=== PATIENT | female | born 1975 | race Caucasian/White ===

== ENCOUNTER → 2021-06-09 00:01 | Outpatient (BNVA) | payer SELFPAY | PROVIDERS: Visit Provider Nurse Practitioner Family | DX: L02.91 Cutaneous abscess, unspecified (principal) | CPT/HCPCS: 87070 ==

== ENCOUNTER → 2021-06-28 13:55 | Outpatient (BNVA) | payer MEDICARE, SELFPAY | PROVIDERS: PCP Nurse Practitioner Family; Visit Provider Surgery | DX: Z09 Encounter for follow-up examination after completed treatment for conditions other than malignant neoplasm (principal); R19.5 Other fecal abnormalities; K59.00 Constipation, unspecified; R10.9 Unspecified abdominal pain; F17.210 Nicotine dependence, cigarettes, uncomplicated | CPT/HCPCS: 99203; 99204 ==

== ENCOUNTER → 2021-07-01 09:56 | Outpatient (BNVA) | payer MEDICARE, SELFPAY | PROVIDERS: PCP Nurse Practitioner Family; Visit Provider Internal Medicine | DX: E27.8 Other specified disorders of adrenal gland (principal); F17.210 Nicotine dependence, cigarettes, uncomplicated | CPT/HCPCS: 99204 ==

== ENCOUNTER → 2021-07-08 10:42 | Outpatient (BNVA) | payer MEDICARE, SELFPAY | PROVIDERS: PCP Nurse Practitioner Family; Visit Provider Internal Medicine | DX: E27.8 Other specified disorders of adrenal gland (principal) | CPT/HCPCS: 80048; 82088; 82384; 82530; 82533; 82570; 84244 ==

== ENCOUNTER 2021-07-11 09:36 | Inpatient (IN) | payer MEDICARE, SELFPAY ==
[2021-07-11] VITALS (7 sets, daily range): BP systolic 169–197; BP diastolic 90–101; PULSE 80–99; RESP 15–17; TEMP 36.6; O2SAT 94–100; BMI 25.7; BMI 28.1
--- NOTE | 2021-07-11 09:49 | ECG_ITS ---
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 Measurements Intervals [place] Rate: 83 P: 68 WA: 162 QRS: 64 QRSD: 97 T: 130 QT: 403 QTc: 475 Interpretive Statements SINUS RHYTHM MODERATE T-WAVE ABNORMALITY, CONSIDER LATERAL ISCHEMIA [-0.1+ mV T-WAVE IN I/aVL/V5/V6] No previous ECG available for comparison Electronically Signed On 07-11-2021 21:41:40 CDT by Jaswant Albarran M.D. [id number]
--- NOTE | 2021-07-11 12:45 | CT_ITS ---
WS: [id number] CT HEAD NONCONTRAST HISTORY: gait instability TECHNIQUE: Contiguous axial imaging performed through the brain in 2.5 mm imaging. Bone and soft tiss ue windows. Sagittal and coronal reformats reviewed. All CT scans at [facility] use at least one of these dose optimization techniques: automated exposure control; mA and/or kV adjustment per pa tient size (includes targeted exams where dose is matched to clinical indication); or iterative recon struction. DLP: 838.13 mGy.cm COMPARISON: None available. No acute intracranial hemorrhage, midline shift or mass effect. Mild atrophy bilateral is symmetric. No mass or mass effect. Low attenuation measures 10 mm in the R IGHT cerebellar peduncle. There is a small lacunar infarct in the RIGHT basal ganglia. Ventricles: Normal size with no hydrocephalus. No inferior displacement of cerebellar tonsils. Paranasal sinuses: As visualized are clear. Mastoid air cells: Well pneumatized. Calvarium and scalp: Skull is intact with no soft tissue edema or swelling. CT/CT head wo con* [id number] IMPRESSION: 1. No acute intracranial hemorrhage or edema. 2. Cerebral atrophy and small vessel ischemic disease. 3. 10 mm low-attenuation lesion in the RIGHT middle cerebellar peduncle. This is probably a prior lacunar infarct. Recommend follow-up MRI brain with contras t on a nonurgent basis to exclude underlying neoplasm. 4. Small lacunar infarct RIGHT basal ganglia.
--- NOTE | 2021-07-11 12:56 | ED_ITS ---
HPI - General Adult General: Chief complaint: Dizziness Stated complaint: Dizzy, vomiting, headache Time Seen by Provider: 07/11/21 12:29 History of Present Illness: Patient is a 45-year-old female with a history of diabetes hypertension presents emergency room for evaluation of cute onset of gait instability since 2 days ago. Patient tells me she woke up 2 days ago with difficulty walking and lightheadedness. Patient says that she feels unsteady and is unable to balance herself. Patient reports generalized weakness in the arms and legs. Patient denies any associate chest pain, shortness of breath, melena/hematochezia, diarrhea, complaints. Patient denies any focal weakness in the arms or legs, facial droop, language comprehension or speaking difficulty, diplopia, vision field deficit, or vertigo. Patient had 1 episode of emesis with associated headache earlier this morning. Onset:2 days ago Duration:2 days Location:home Severity:severe Associated symptoms: Reports headache(s) and nausea; Deny chest pain, dyspnea, rash, palpitations or vomiting Review of Systems Const: Denies: fever(s) or chills Eyes: Denies: change in vision ENMT: Denies: mouth pain Card: Denies: chest pain or palpitations Resp: Denies: dyspnea or non-productive cough GI: Reports: nausea; Denies: abdominal pain, vomiting or diarrhea : Denies: dysuria Musc: Denies: extremity pain Skin/Breast: Denies: rash or new lesions Neuro: Reports: headache(s) and other (+gait instability, generalized weakness) Psych: Reports: other (Normal mood) Buster/Lymph: Denies: easy bruising [facility] ED PFSH: Medical History Adrenal mass, left Diabetes Surgical History History of back surgery History of History of cholecystectomy Hx of removal of cyst Family History Other Hypertension Social History Smoking and tobacco status: current every day smoker Physical Exam Const: COMMON NORMALS: alert HENMT: COMMON NORMALS: atraumatic HEAD & SCALP: atraumatic MOUTH: moist mucous membranes not abnormal Eye: COMMON NORMALS: EOMs intact bilaterally and conjunctivae normal CONJUNCTIVA: Yes conjunctivae normal Neck/C-Spine: COMMON NORMALS: full ROM and supple Resp: COMMON NORMALS: normal respiratory effort and clear to auscultation bilaterally AUSCULTATION: clear to auscultation bilaterally Cardio: COMMON NORMALS: regular rate RATE: regular rate GI: COMMON NORMALS: Soft to palpation and non-tender PALPATION: Yes Soft to palpation Extremity: COMMON NORMALS: full ROM Neuro: SENSORIUM/ORIENTATION: Yes alert OTHER: Mental status? Awake, alert, and oriented to self, year, month, location, and situation.? Following simple axial and appendicular commands.? Has appropriate fund of knowledge, comprehension, and insight.? Able to recall and understands pertinent aspects of medical history and current treatment status.? ? Language? Speech is fluent without word-finding difficulties.? Intact naming, expression, switchboard operator receptionist, and repetition.? ? Cranial nerves? 2,3,4,6: PERRL, EOMI with no nystagmus. 5: Intact sensation to light touch, symmetric? 7: Smile symmetrical, no facial droop.? 8: Hearing grossly intact.? 9,10: Normal palate movement.? 11: Normal strength in trapezius bilaterally 12: Tongue protrudes midline.? ? Motor examination? Normal bulk & tone. Strength as follows (R/L): Delts (5/5), Biceps (5/5), Triceps (5/5), Wrist ext (5/5), hip flexors (5/5), plantarflexors (5/5), dorsiflexors (5/5). Sensation? Light Touch: Grossly intact and equal in upper and lower extremities bilaterally? Romberg: Negative.? Distal joint position sense intact ? Coordination? +Qxesdv-rp-ouly-finger L side dysmetria +Rapid fingertaps: not preserved on the L side No tremor, myoclonus or truncal ataxia.? ? Gait/stance? +unsteady gait +positive romberg Psych: COMMON NORMALS: speech normal SPEECH: Yes normal speech MOOD & AFFECT: Yes euthymic mood Course Vital Signs: Vital signs: Vital Signs Temperature 97.9 F 07/11/21 12:20 Pulse Rate 80 07/11/21 14:42 Respiratory Rate 16 07/11/21 14:42 Blood Pressure 197/90 07/11/21 14:42 Pulse Oximetry 99 07/11/21 14:42 [facility] - General Adult Medical Decision Making 45-year-old female with a history of diabetes, hypertension presenting to the emergency room for concerns of gait instability x2 days. On physical exam, patient has positive Romberg, left-sided dysmetria, unsteady gait, and faulty rapid finger tap test on the L side. CT head showed 10 mm lesion in the right peduncle. MRI showed acute L cerebellar stroke. Not a candidate for TPA. Case was discussed with Dr. Morel who admit patient for further evaluation. Disposition: admission Lab Data : 07/11/21 14:06 07/11/21 17:[address] 07/11/21 12:45 IMPRESSION: 1. No acute intracranial hemorrhage or edema. 2. Cerebral atrophy and small vessel ischemic disease. 3. 10 mm low-attenuation lesion in the RIGHT middle cerebellar peduncle. This is probably a prior lacunar infarct. Recommend follow-up MRI brain with contrast on a nonurgent basis to exclude underlying neoplasm. 4. Small lacunar infarct RIGHT basal ganglia. Head MRI 07/11/21 14:19 IMPRESSION: Acute infarct in the left middle cerebellar peduncle. There appears to be an old infarct in the right cerebellar peduncle corresponding to findings on prior CT. Head MRA 07/11/21 15:41 IMPRESSION: Areas of moderate stenosis seen at the intracranial segments of the internal carotid arteries, left greater than right. No occlusion. Neck MRA 07/11/21 15:50 IMPRESSION: No stenosis or occlusion. REFERENCES: NASCET CRITERIA. The degree of internal carotid artery stenosis is based on NASCET criteria. Normal is no stenosis. Mild is less than 50% stenosis. Moderate is 50-69% stenosis. Severe is 70% to 99% stenosis. Total occlusion is no detectable patent lumen. Laboratory Results WBC 8.0 10^3/uL (4.0-10.0) 07/11/21 14:06 RBC 5.50 10^6/uL (4.1-5.3) H 07/11/21 14:06 Hgb 17.1 g/dL (11.5-15.3) H 07/11/21 14:06 Hct 49.9 % (37.0-47.0) H 07/11/21 14:06 MCV 90.7 fl (81-99) 07/11/21 14:06 MCH 31.1 pg (28.0-34.0) 07/11/21 14:06 MCHC 34.3 g/dL (30.0-36.0) 07/11/21 14:06 RDW 12.4 % (12.1-15.1) 07/11/21 14:06 Plt Count 367 10^3/cmm (130-400) 07/11/21 14:06 MPV 9.5 fL (7.4-10.4) 07/11/21 14:06 Neut % (Auto) 69.1 % 07/11/21 14:06 Lymph % (Auto) 25.9 % 07/11/21 14:06 Davison % (Auto) 4.4 % 07/11/21 14:06 Eos % (Auto) 0.2 % 07/11/21 14:06 Baso % (Auto) 0.2 % 07/11/21 14:06 Neut # (Auto) 5.54 10^3/uL (1.8-7.7) 07/11/21 14:06 Lymph # (Auto) 2.1 10^3/uL (0.8-4.8) 07/11/21 14:06 Davison # (Auto) 0.4 10^3/uL (0.2-0.9) 07/11/21 14:06 Eos # (Auto) 0.0 10^3/uL (0.0-0.8) 07/11/21 14:06 Baso # (Auto) 0.0 10^3/uL (0.0-0.1) 07/11/21 14:06 Nucleated RBC % (auto) 0 % 07/11/21 14:06 Nucleated RBCs # 0.0 /100WBC 07/11/21 14:06 Sodium 138 mmol/L (136-145) 07/11/21 17:45 Potassium 3.7 mmol/L (3.5-5.1) 07/11/21 17:45 Chloride 103 mmol/L (98-107) 07/11/21 17:45 Carbon Dioxide 23 mmol/L (22-29) 07/11/21 17:45 Anion Gap 15.7 (5-19) 07/11/21 17:45 BUN 8 mg/dL (6-20) 07/11/21 17:45 Creatinine 0.3 mg/dL (0.5-0.9) L 07/11/21 17:45 GFR Calculation 238.5 mL/min (90-130) H 07/11/21 17:45 Glucose 184 mg/dL (65-115) H 07/11/21 17:45 Calculated Osmolality 289 mOsm/kg (285-295) 07/11/21 17:45 Calcium 10.1 mg/dL (8.5-10.5) 07/11/21 17:45 Total Bilirubin 0.2 mg/dL (0.15-1.2) 07/11/21 17:45 AST 12 U/L (0-32) 07/11/21 17:45 ALT 17 U/L (0-33) 07/11/21 17:45 Alkaline Phosphatase 82 IU/L (35-105) 07/11/21 17:45 Total Protein 6.5 g/dL (6.6-8.7) L 07/11/21 17:45 Albumin 3.6 g/dL (3.5-5.2) 07/11/21 17:45 Globulin 2.9 g/dL (1.3-4.6) 07/11/21 17:45 HCG, Qual Negative (Negative) 07/11/21 14:06 Imaging Data Other Imaging: Radiologist's impression: [address] [address] [address] Scan Report Signed Patient: Melissa Solomon Unit #: [id number] : 1975 Age/Sex: 45 / F ADM Date: 07/11/21 Loc: ER Room/Bed: Attending Dr: Ordering Provider/Ordering MD: Giulia Adame MD Date of Service: 07/11/21 Procedure(s): CT head wo con* [id number] Accession Number(s): [id number] Report Number: [id number] WS: [id number] CT HEAD NONCONTRAST HISTORY: gait instability TECHNIQUE: Contiguous axial imaging performed through the brain in 2.5 mm imaging. Bone and soft tissue windows. Sagittal and coronal reformats reviewed.? [facility] CT scans at [facility] use at least one of these dose optimization techniques: automated exposure control; mA and/or kV adjustment per patient size (includes targeted exams where dose is matched to clinical indication); or iterative reconstruction. DLP: 838.13 mGy.cm COMPARISON: None available. No acute intracranial hemorrhage, midline shift or mass effect. Mild atrophy bilateral is symmetric. No mass or mass effect.? Low attenuation measures 10 mm in the RIGHT cerebellar peduncle. There is a small lacunar infarct in the RIGHT basal ganglia. Ventricles:? Normal size with no hydrocephalus. No inferior displacement of cerebellar tonsils. Paranasal sinuses: As visualized are clear. Mastoid air cells: Well pneumatized. Calvarium and scalp: Skull is intact with no soft tissue edema or swelling. CT/CT head wo con* [id number] IMPRESSION: ? 1.? No acute intracranial hemorrhage or edema. 2.? Cerebral atrophy and small vessel ischemic disease. 3.? 10 mm low-attenuation lesion in the RIGHT middle cerebellar peduncle. This is probably a prior lacunar infarct. Recommend follow-up MRI brain with contrast on a nonurgent basis to exclude underlying neoplasm. 4.? Small lacunar infarct RIGHT basal ganglia. ? Dictated By: Michelle Gohtra DO Signed By: Michelle Ghotra DO Signed Date/Time: 07/11/21 1322 DD/ [address] [address] Magnetic Resonance Report Signed Patient: Melissa Solomon Unit #: [id number] : 1975 Age/Sex: 45 / F ADM Date: 07/11/21 Loc: ER Room/Bed: Attending Dr: Ordering Provider/Ordering MD: Giulia Adame MD Date of Service: 07/11/21 Procedure(s): MR angio neck wo con [id number] Accession Number(s): [id number] Report Number: [id number] PROCEDURE INFORMATION: Exam: MRA Neck With Contrast Exam date and time: 07/11/2021 4:45 PM Age: 45 years old Clinical indication: Abnormal findings; Abnormal mri of head; Additional info: Neck pain, cerebellar stroke TECHNIQUE: Imaging protocol: Magnetic resonance angiography of the neck with contrast. Angiographic sequences such as Mvqb-lv-yqnuqo (TOF) or Time-resolved contrast techniques were performed. Contrast material: 0; Contrast route: NON-VASCULAR INTERVENTIONAL INJECTION (NON-VASCULA;? COMPARISON: MR angio head wo con [id number] 07/11/2021 4:31 PM FINDINGS: Right common carotid artery: No stenosis. No dissection or occlusion. Right internal carotid artery: No stenosis of the extracranial segment. No dissection or occlusion. Right external carotid artery: No stenosis. No dissection or occlusion of the origin. Right vertebral artery: No stenosis. No dissection or occlusion. Left common carotid artery: No stenosis. No dissection or occlusion. Left internal carotid artery: No stenosis of the extracranial segment. No dissection or occlusion. Left external carotid artery: No stenosis. No dissection or occlusion of the origin. Left vertebral artery: No stenosis. No dissection or occlusion. MR/MR angio neck wo con [id number] IMPRESSION: No stenosis or occlusion. ? REFERENCES: NASCET CRITERIA. The degree of internal carotid artery stenosis is based on NASCET criteria. Normal is no stenosis. Mild is less than 50% stenosis. Moderate is 50-69% stenosis. Severe is 70% to 99% stenosis. Total occlusion is no detectable patent lumen. ? Dictated By: Scott Bah DO Signed By: Scott Bah DO Signed Date/Time: 07/11/211826 DD/ [address] [address] Magnetic Resonance Report Signed Patient: Melsisa Solomon Unit #: [id number] : 1975 Age/Sex: 45 / F ADM Date: 07/11/21 Loc: ER Room/Bed: Attending Dr: Ordering Provider/Ordering MD: Giulia Adame MD Date of Service: 07/11/21 Procedure(s): MR angio head wo con [id number] Accession Number(s): [id number] Report Number: [id number] PROCEDURE INFORMATION: Exam: MRA Head Without Contrast; Arteriography Exam date and time: 07/11/2021 4:31 PM Age: 45 years old Clinical indication: Dizziness and giddiness; Additional info: Eval for vascular injuries TECHNIQUE: Imaging protocol: Magnetic resonance angiography head without contrast. Ubgz-sv-ylnxbx (TOF) technique was utilized for this exam. Exam focused on the arteries. COMPARISON: MR head wo con* [id number] 07/11/2021 3:22 PM FINDINGS: ANTERIOR CIRCULATION: Right internal carotid artery: Areas of moderate stenosis seen at the intracranial segment of the internal carotid artery without occlusion. No aneurysm. Right middle cerebral artery: No occlusion or significant stenosis. No aneurysm. Right anterior cerebral artery: No occlusion or significant stenosis. No aneurysm. Left internal carotid artery: Areas of moderate stenosis seen at the intracranial segment of the internal carotid artery without occlusion. No aneurysm. Left middle cerebral artery: No occlusion or significant stenosis. No aneurysm. Left anterior cerebral artery: No occlusion or significant stenosis. No aneurysm. POSTERIOR CIRCULATION: Right vertebral artery: No occlusion or significant stenosis. No aneurysm. Left vertebral artery: No occlusion or significant stenosis. No aneurysm. Basilar artery: No occlusion or significant stenosis. No aneurysm. Right posterior cerebral artery: No occlusion or significant stenosis. No aneurysm. Left posterior cerebral artery: No occlusion or significant stenosis. No aneurysm. MR/MR angio head wo con [id number] IMPRESSION: Areas of moderate stenosis seen at the intracranial segments of the internal carotid arteries, left greater than right. No occlusion. ? Dictated By: Scott aBh DO Signed By: Scott Bah DO Signed Date/Time: 07/11/21 1833 DD/ [address] [place] [address] Magnetic Resonance Report Signed Patient: Melissa Solomon Unit #: [id number] : 1975 Age/Sex: 45 / F ADM Date: 07/11/21 Loc: ER Room/Bed: Attending Dr: Ordering Provider/Ordering MD: Giulia Adame MD Date of Service: 07/11/21 Procedure(s): MR head wo con* [id number] Accession Number(s): [id number] Report Number: [id number] PROCEDURE INFORMATION: Exam: MR Head Without Contrast Exam date and time: 07/11/2021 3:22 PM Age: 45 years old Clinical indication: Abnormal findings; Abnormal radiologic findings of head/skull; Not specified; Additional info: R cerebellar met vs stroke TECHNIQUE: Imaging protocol: MR of the head without contrast. COMPARISON: CT head wo con* [id number] 07/11/2021 1:00 PM FINDINGS: Brain: Acute infarct in the left middle cerebellar peduncle with diffusion restriction in this region as best seen on series 302, image 7 and series 303, image 7. There is a presumed old infarct in the right cerebellar peduncle corresponding to finding on CT. Please note, cannot evaluate for enhancement given lack of contrast. Cerebral ventricles: Normal. No ventriculomegaly. Bones/joints: Unremarkable. Paranasal sinuses: Trace fluid in the left maxillary sinus. The rest of the paranasal sinuses are well pneumatized. Mastoid air cells: Normal as visualized. No mastoid effusion. Orbital cavities: Unremarkable. Soft tissues: Unremarkable. MR/MR head wo con* [id number] IMPRESSION: Acute infarct in the left middle cerebellar peduncle. There appears to be an old infarct in the right cerebellar peduncle corresponding to findings on prior CT. ? Dictated By: Scott Bah DO Signed By: Scott Bah DO Signed Date/Time: 07/11/21 1840 DD/ 1522 Discharge Plan Discharge Patient Disposition: Admitted As Inpatient Clinical Impression: Dysmetria, Gait instability Condition: Stable Coding Level of Care Code ED Recreational Director for Chg Fwd Exam Comprehensive
[2021-07-11] MEDS: sodium chloride 0.9% 1,000 ML 999 ML IV ×2 (14:01→14:34)
[2021-07-11] MEDS: ondansetron 2 mg/ML SDV 2 mL 4 MG IVP (14:03)
[2021-07-11] MEDS: acetaminophen 500 mg Tablet PO ×2 (14:03→14:34)
--- NOTE | 2021-07-11 14:19 | MRR_ITS ---
PROCEDURE INFORMATION: Exam: MR Head Without Contrast Exam date and time: 07/11/2021 3:22 PM Age: 45 years old Clinical indication: Abnormal findings; Abnormal radiologic findings of head/skull; Not specified; Additional info: R cerebellar met vs stroke TECHNIQUE: Imaging protocol: MR of the head without contrast. COMPARISON: CT head wo con* [id number] 07/11/2021 1:00 PM FINDINGS: Brain: Acute infarct in the left middle cerebellar peduncle with diffusion restriction in this region as best seen on series 302, image 7 and series 303, image 7. There is a presumed old infarct in the right cerebellar peduncle corresponding to finding on CT. Please note, cannot evaluate for enhancement given lack of contrast. Cerebral ventricles: Normal. No ventriculomegaly. Bones/joints: Unremarkable. Paranasal sinuses: Trace fluid in the left maxillary sinus. The rest of the paranasal sinuses are well pneumatized. Mastoid air cells: Normal as visualized. No mastoid effusion. Orbital cavities: Unremarkable. Soft tissues: Unremarkable. MR/MR head wo con* [id number] IMPRESSION: Acute infarct in the left middle cerebellar peduncle. There appears to be an old infarct in the right cerebellar peduncle corresponding to findings on prior CT.
[2021-07-11] MEDS: diphenhydrAMINE 50 mg/mL SDV 1mL IVP (14:34)
[2021-07-11] MEDS: metoclopramide 5 mg/mL SDV 2 mL 10 MG IVP (14:34)
[2021-07-11 14:44] LABS: Basophils % 0.2 %; Eosinophils % 0.2 %; Hematocrit 49.9 % (37.0-47.0); Hemoglobin 17.1 g/dL (11.5-15.3); Lymphocytes # 2.1 10^3/uL (0.8-4.8); Lymphocytes % 25.9 %; Mean Corpuscular HGB Conc 34.3 g/dL (30.0-36.0); Mean Corpuscular Hemoglobin 31.1 pg (28.0-34.0); Mean Corpuscular Volume 90.7 fl (81-99); Mean Platelet Volume 9.5 fL (7.4-10.4); Monocytes # 0.4 10^3/uL (0.2-0.9); Monocytes % 4.4 %; Neutrophils # 5.54 10^3/uL (1.8-7.7); Neutrophils % 69.1 %; Nucleated Red Blood Cells % 0 %; Platelet Count 367 10^3/cmm (130-400); Red Cell Distribution Width 12.4 % (12.1-15.1)
[2021-07-11 15:01] LABS: HCG, Serum Qual Negative (Negative)
--- NOTE | 2021-07-11 15:41 | MRR_ITS ---
PROCEDURE INFORMATION: Exam: MRA Head Without Contrast; Arteriography Exam date and time: 07/11/2021 4:31 PM Age: 45 years old Clinical indication: Dizziness and giddiness; Additional info: Eval for vascular injuries TECHNIQUE: Imaging protocol: Magnetic resonance angiography head without contrast. Fgrz-ex-eioqed (TOF) technique was utilized for this exam. Exam focused on the arteries. COMPARISON: MR head wo con* [id number] 07/11/2021 3:22 PM FINDINGS: ANTERIOR CIRCULATION: Right internal carotid artery: Areas of moderate stenosis seen at the intracranial segment of the internal carotid artery without occlusion. No aneurysm. Right middle cerebral artery: No occlusion or significant stenosis. No aneurysm. Right anterior cerebral artery: No occlusion or significant stenosis. No aneurysm. Left internal carotid artery: Areas of moderate stenosis seen at the intracranial segment of the internal carotid artery without occlusion. No aneurysm. Left middle cerebral artery: No occlusion or significant stenosis. No aneurysm. Left anterior cerebral artery: No occlusion or significant stenosis. No aneurysm. POSTERIOR CIRCULATION: Right vertebral artery: No occlusion or significant stenosis. No aneurysm. Left vertebral artery: No occlusion or significant stenosis. No aneurysm. Basilar artery: No occlusion or significant stenosis. No aneurysm. Right posterior cerebral artery: No occlusion or significant stenosis. No aneurysm. Left posterior cerebral artery: No occlusion or significant stenosis. No aneurysm. MR/MR angio head wo con [id number] IMPRESSION: Areas of moderate stenosis seen at the intracranial segments of the internal carotid arteries, left greater than right. No occlusion.
--- NOTE | 2021-07-11 15:50 | MRR_ITS ---
PROCEDURE INFORMATION: Exam: MRA Neck With Contrast Exam date and time: 07/11/2021 4:45 PM Age: 45 years old Clinical indication: Abnormal findings; Abnormal mri of head; Additional info: Neck pain, cerebellar stroke TECHNIQUE: Imaging protocol: Magnetic resonance angiography of the neck with contrast. Angiographic sequences such as Iraz-tt-pyujze (TOF) or Time-resolved contrast techniques were performed. Contrast material: 0; Contrast route: NON-VASCULAR INTERVENTIONAL INJECTION (NON-VASCULA; COMPARISON: MR angio head wo con [id number] 07/11/2021 4:31 PM FINDINGS: Right common carotid artery: No stenosis. No dissection or occlusion. Right internal carotid artery: No stenosis of the extracranial segment. No dissection or occlusion. Right external carotid artery: No stenosis. No dissection or occlusion of the origin. Right vertebral artery: No stenosis. No dissection or occlusion. Left common carotid artery: No stenosis. No dissection or occlusion. Left internal carotid artery: No stenosis of the extracranial segment. No dissection or occlusion. Left external carotid artery: No stenosis. No dissection or occlusion of the origin. Left vertebral artery: No stenosis. No dissection or occlusion. MR/MR angio neck wo con [id number] IMPRESSION: No stenosis or occlusion. REFERENCES: NASCET CRITERIA. The degree of internal carotid artery stenosis is based on NASCET criteria. Normal is no stenosis. Mild is less than 50% stenosis. Moderate is 50-69% stenosis. Severe is 70% to 99% stenosis. Total occlusion is no detectable patent lumen.
[2021-07-11 18:15] LABS: Alanine Aminotransferase 17 U/L (0-33); Albumin Level 3.6 g/dL (3.5-5.2); Alkaline Phosphatase 82 IU/L (35-105); Anion Gap 15.7 (5-19); Aspartate Amino Transferase 12 U/L (0-32); Blood Urea Nitrogen 8 mg/dL (6-20); Calcium 10.1 mg/dL (8.5-10.5); Carbon Dioxide 23 mmol/L (22-29); Chloride 103 mmol/L (98-107); Globulin 2.9 g/dL (1.3-4.6); Glomerular Filtration Rate 238.5 mL/min (90-130); Glucose 184 mg/dL (65-115); Osmolality Calculated 289 mOsm/kg (285-295); Potassium 3.7 mmol/L (3.5-5.1); Sodium 138 mmol/L (136-145); Total Bilirubin 0.2 mg/dL (0.15-1.2); Total Protein 6.5 g/dL (6.6-8.7)
--- NOTE | 2021-07-11 19:18 | PM.HP ---
Providers/Chief Complaint Primary Care Provider: ALMA DELIA Cunningham Chief Complaint: Dizzy, vomiting, headache History of Present Illness Pleasant 45-year-old lady with history of DM2, HTN, current smoker has been having difficulties with gait, as well as having episodes of vertigo since Sunday. Also reports some headache. In ER with noted very elevated blood pressure as high as 197/90. CT of the head with no acute intracranial hemorrhage or edema, cerebral atrophy and small vessel ischemic disease. 10 mm low-attenuation lesion in the right middle cerebellar peduncle suspected prior infarct, could not rule out neoplasm. Small chronic infarct right basal ganglia. Was additionally assessed by MRI and MRI, with noted acute infarct in left middle cerebral peduncle. As well as old infarct in right cerebellar peduncle corresponding to findings on CT. MRA head with there is moderate stenosis seen at intracranial segments of the internal carotid arteries. Left greater than right. No occlusion. No stenosis or occlusion in the neck. She has seen endocrinology and studies are pending for work-up of adrenal incidentaloma. She was also supposed to be following up regarding upper and lower endoscopy due to chronic right-sided and epigastric discomfort. Review of Systems Const: Denies: fever(s), chills, body aches or malaise Eyes: Denies: change in vision, eye discomfort or eye redness ENMT: Denies: throat pain, oral sores or ear or mastoid pain Card: Denies: chest pain, edema, pre-syncope or dyspnea on exertion Resp: Denies: dyspnea, productive cough, change in phlegm color or hemoptysis GI: Reports: nausea, vomiting and constipation; Denies: abdominal pain, diarrhea, hematochezia or melena : Denies: flank pain, urinary frequency or hematuria Musc: Denies: back pain, joint swelling or joint redness Skin/Breast: Denies: rash or new lesions Neuro: Reports: headache(s), difficulty walking and vertigo; Denies: numbness in extremities, weakness in extremities, confusion or seizure-like activity Endo: Denies: polyuria or polydipsia Buster/Lymph: Denies: easy bleeding or tender lymph nodes All/Imm: Denies: urticaria or tongue swelling Medications/Allergies Home Medications Medication Instructions Recorded Confirmed Last Taken Type diclofenac sodium 50 mg 50 mg PO Q8H PRN #60 tab 06/24/21 07/11/21 07/10/21 Rx tablet,delayed release labetalol 100 mg tablet 100 mg PO BID 06/24/21 07/11/21 07/11/21 History lisinopril 10 mg tablet 10 mg PO DAILY 06/24/21 07/11/21 07/10/21 History metformin 1,000 mg tablet 1,000 mg PO BID 06/24/21 07/11/21 07/10/21 History ondansetron HCl 4 mg tablet 4 mg PO Q8H 06/24/21 07/11/21 Unknown History venlafaxine 37.5 mg 37.5 mg PO DAILY #30 cap 06/24/21 07/11/21 07/10/21 Rx capsule,extended release 24 hr (Effexor XR) lactulose 10 gram/15 mL oral 15 ml PO BID 14 Days #420 ml 06/28/21 07/11/21 Unknown Rx solution Allergies Allergy/AdvReac Type Severity Reaction Status Date / Time No Known Allergies Allergy Verified 07/01/21 10:13 PFSH Acute PFSH: Medical History (Updated 07/11/21 @ 19:58 by Ion Forbes MD) Adrenal mass, left Diabetes HTN (hypertension) Surgical History History of back surgery History of History of cholecystectomy Hx of removal of cyst Family History Sister Stroke Other Hypertension Social History Smoking and tobacco status: current every day smoker Alcohol intake: never Substance/Drug Use: never Lives independently: Yes Household members: spouse Marital status: Current occupational status: unemployed Vitals/I&O/Wt Last Vital Signs Temp 97.9 F 07/11/21 12:20 Pulse 80 07/11/21 14:42 Resp 16 07/11/21 14:42 BP 197/90 07/11/21 14:42 Pulse Ox 99 07/11/21 14:42 07/11/21 07/11/21 07/11/21 06:59 14:59 22:59 Intake Total 1000 / 1000 Balance 1000 / 1000 Weight last 48 hrs Weight 70.307 kg Physical Exam Narrative: at bedside Const: COMMON NORMALS: alert GENERAL APPEARANCE: cooperative ORIENTATION/CONSCIOUSNESS: Yes awake HENMT: COMMON NORMALS: normocephalic, EAC's normal, Normal external nose present and moist oral mucous membranes HEAD & SCALP: normocephalic NOSE: Normal external nose present EXTERNAL AUDITORY CANAL: EAC's normal Neck/C-Spine: COMMON NORMALS: no meningeal signs Chest: CHEST: Yes Symmetrical chest wall rise Resp: COMMON NORMALS: clear to auscultation bilaterally AUSCULTATION: clear to auscultation bilaterally Cardio: COMMON NORMALS: regular rate, regular rhythm and No murmurs present (Cardio) RATE: regular rate RHYTHM: regular rhythm GI: COMMON NORMALS: Normal to inspection, nondistended, normoactive bowel sounds present, Soft to palpation and non-tender PALPATION: Yes Soft to palpation Extremity: COMMON NORMALS: no pedal edema Neuro: COMMON NORMALS: moves all extremities SENSORIUM/ORIENTATION: Yes alert MENINGEAL SIGNS: Yes no meningeal signs COORDINATION/BALANCE: No [id number] test normal (Mild dysmetria on L, corrects), No Normal rapid alternating movements of the distal upper extremity present (Neuro) (slower on L) and other SPEECH: speech normal SENSORY EXAM: Yes extremities (Symmetrical) and Normal double simultaneous stimulation for sensation; No sensory level loss detected MOTOR EXAM: 5/5 motor strength present throughout OTHER: Awake and alert. Readily follows directions. No trouble tracking. No diplopia or vertigo triggered with horizontal or vertical tracking. Visual may full to confrontation. No facial droop. Psych: COMMON NORMALS: mental status grossly normal Skin: COMMON NORMALS: no wounds RASHES: no rashes Data : 07/11/21 14:06 07/11/21 17:45 A&P Assessment and plan (1) CVA (cerebral vascular accident): Acute infarct in left middle cerebellar peduncle, old infarct in right cerebellar peduncle. Discussed with her and her . Outside the window for tPA or intervention. Noted MRI results with areas of moderate stenosis at the intracranial segments of internal carotid arteries, left greater than right. Discussed with her risk factors of CVA, including smoking, HTN, diabetes. Does have family history of CVA as well. Discussed aspirin, statin. Permissive hypertension. Monitor blood pressures Posterior circulation CVA. Avoid blood rapid pressure decrease. Continue gentle IV hydration. Monitor on telemetry. Assess TTE. Check A1c, lipid profile. PT, OT, ST Stop NSAIDs Status: Acute (2) Smoking addiction: Discussed smoking cessation for 4 minutes. Given supplementation change encourage cessation. Status: Acute (3) Carotid artery stenosis: Moderate, left greater than right Status: Acute (4) HTN (hypertension): Will need optimization of control of hypertension. Also with noted adrenal incidentaloma, currently undergoing work-up for hypersecretion. Reports sometimes episodes of lightheadedness, discussed with her will be useful to determine that does not have pheochromocytoma. Stop NSAIDs Status: Acute (5) Diabetes: Check A1c. Continue metformin. Consistent carbohydrate diet. Status: Acute Plan Chronic right abdominal, epigastric pain. Pending arrangements for EGD, colonoscopy. Chronic constipation: Continue lactulose Attestations Medical Necessity Statement*: Admission of over 2 midnights is anticipated for assessment of management of acute and subacute cerebellar CVA. Coding Level of Care Code Acute Video Games Mechanic for Susan Pat Diagnoses CVA (cerebral vascular accident) I63.9 Smoking addiction F17.200 Carotid artery stenosis I65.29 HTN (hypertension) I10 Diabetes E11.9
[2021-07-11] MEDS: heparin 5,000 unit/mL INJ 1 mL 5000 UNIT SUBCUT (20:44)
[2021-07-11] MEDS: atorvastatin 40 mg Tablet PO (20:44)
[2021-07-11] MEDS: aspirin 81 mg EC Tablet 162 MG PO (20:44)
[2021-07-11] MEDS: sodium chloride 0.9% 1,000 ML 100 ML IV (20:44)
[2021-07-11] MEDS: nicotine 21 mg Patch 1 PATCH TRANSDERMA (20:45)
[2021-07-11 21:18] LABS: Glucose Point of Care 171 mg/dL (70-110)
[2021-07-12] VITALS (12 sets, daily range): BP systolic 166–194; BP diastolic 78–95; PULSE 80–101; RESP 16–18; TEMP 36.2–37.6; O2SAT 92–99
[2021-07-12] MEDS: heparin 5,000 unit/mL INJ 1 mL 5000 UNIT SUBCUT ×3 (04:10→20:34)
[2021-07-12 05:17] LABS: Chol HDL Ratio 7.85 mg/dL (0.0-4.40); Cholesterol 259 mg/dL (0-200); HDL Cholesterol 33 mg/dL (60-100); LDL Cholesterol Calculated 169 mg/dL (50-129); LDL HDL Ratio 5.12 RATIO (0.00-3.22); Triglycerides 283 mg/dL (0-150)
[2021-07-12 05:44] LABS: Estmated Average Glucose 197; Hemoglobin A1C 8.5 % (4.0-6.0)
--- NOTE | 2021-07-12 06:00 | USCV_ITS ---
Melissa Solomon Age: 45 Gender: F : 1975 Exam Date: 07/12/2021 00:21 Ordering Phys: Ion Forbes MD Technologist: MEHRDAD Exam Location: [facility] – [place] Indication: CVA BP: / HR: 84 Rhythm: Sinus Technical Quality: Adequate MEASUREMENTS (Male / Female) Normal Values 2D ECHO LV Diastolic Diameter PLAX 5.2 cm 4.2 - 5.9 / 3.9 - 5.3 cm LV Systolic Diameter PLAX 3.0 cm IVS Diastolic Thickness 1.1 cm 0.6 - 1.0 / 0.6 - 0.9 cm IVS Systolic Thickness 2.7 cm LVPW Diastolic Thickness 1.1 cm 0.6 - 1.0 / 0.6 - 0.9 cm LVPW Systolic Thickness 2.2 cm LVOT Diameter 2.2 cm LV Ejection Fraction 2D Teich 72.4 % LV Ejection Fraction MOD 2C 55.8 % LV Ejection Fraction 2C AL 58.8 % LA Diameter 3.1 cm LA Width 3.9 cm LA Height 4.6 cm RA Width 3.0 cm RA Height 2.6 cm Aorta at Sinotubular Diameter 2.0 cm IVC Diameter 1.5 cm M-MODE Aortic Annulus Diameter 2.4 cm LA Ao Ratio MM 1.4 MV E Point Septal Separation 0.8 cm DOPPLER AV Peak Velocity 133.0 cm/s LVOT Peak Velocity 100.0 cm/s AV Area Cont Eq vti 2.8 cm squared AV Area Cont Eq pk 2.9 cm squared MV Peak Velocity 118.0 cm/s MV Area PHT 3.9 cm squared Mitral E to A Ratio 0.8 MV E' Velocity 94.0 cm/s TR Peak Velocity 83.7 cm/s TR Peak Gradient 2.8 mmHg TR Mean Velocity 61.9 cm/s TR Mean Gradient 1.6 mmHg TR Velocity Time Integral 17.6 cm Right Atrial Pressure 10.0 mmHg Pulmonary Artery Systolic Pressu 12.8 mmHg PV Peak Velocity 98.0 cm/s RV Acceleration Time 0.1 s RV Ejection Time 0.3 s RV AcT/ET 0.3 FINDINGS Left Ventricle LV systolic function is normal with EF of 55-60%. No regional wall motion abnormalities. Grade 1 diastolic dysfunction Right Ventricle The right ventricle is normal in size and function. Right Atrium The right atrium is normal in size. Left Atrium The left atrium is normal in size. Mitral Valve Structurally normal mitral valve without significant stenosis or prolapse. There is mild mitral regurgitation. Aortic Valve Structurally normal aortic valve without significant sclerosis or stenosis. There is no aortic regurgitation. Tricuspid Valve Structurally normal tricuspid valve without significant stenosis. Trace tricuspid regurgitation. Insufficient TR jet to calculate RVSP Pulmonic Valve Structurally normal pulmonic valve without significant stenosis. There is no pulmonic regurgitation. Pericardium Trivial pericardial effusion Aorta Normal ascending aorta dimension. CONCLUSIONS LV systolic function is normal with EF of 55-60% Grade 1 diastolic dysfunction Mild mitral regurgitation Trace tricuspid regurgitation Trivial pericardial effusion is seen No comparison studies are available Ld Ferrer MD (Electronically Signed) Final Date: 12 Jul 2021 11:26 S
[2021-07-12] MEDS: morphine 4 mg/mL SDV 1 mL 2 MG IVP ×2 (07:43→16:19)
[2021-07-12] MEDS: sodium chloride 0.9% 1,000 ML 100 ML IV (07:44)
[2021-07-12] MEDS: metformin 500 mg Tablet 1000 MG PO ×2 (07:49→17:16)
[2021-07-12] MEDS: aspirin 81 mg EC Tablet 162 MG PO (07:49)
[2021-07-12] MEDS: venlafaxine ER (24HR) 37.5 mg Capsule PO (07:49)
--- NOTE | 2021-07-12 14:17 | PC.CHAP ---
Pastoral Care Encounter/Spiritual Assessment Type of Contact [] Declined senior staff specialized employment visit [] Patient/Family/Request visit [] Outpatient visit [] Follow-up visit [] Physician referral [] Code/Alert [x] Routine visit [] Staff referral [] Actively dying [] Patient sleeping [] Family support [] [] Out of room [] Palliative care [] [] Receiving care in room [] Pre-surgical visit [] Trauma [] Long length of stay [] ICU visit [] Other: Relational/Emotional Strength [x] Patient feels connected with others/family/visitors/staff [] Distress [] Loneliness/isolation [] Abandonment Spirituality of Patient [x] Person of Taylor [x] Attends Anabaptism of their [place] [x] Believes in Prayer [] Reads Bible or Yarsani materials [] There are Spiritual issues to be addressed Java Lead Architect Interventions [x] Prayer [x] Active listening [x] Non-anxious presence x[] Spiritual/emotional support [] Crisis/trauma care [] Spiritual counseling [] Bereavement support [] Provided bereavement packet [] Provided Bible/devotional materials [] Provided toy/stuffed animal, coloring book to patient or family member [] Provided Communion [] Anointing/Mayer [] Salvation [x] Completed spiritual assessment [] Other: Impact on Illness or Injury [] Angry [] Fearful [] Anxious [] Often cries [] Exhaustion [] Unable to work [] Unable to attend presybeterian [] Unable to walk/stand [] Unable to read [] Unable to drive [] Unable to eat/drink [] Unable to sleep [] Unable to be with family [] Patient intubated [] Other: Summary Time spent with patient 10 min
--- NOTE | 2021-07-12 15:15 | PC.OT ---
OT EVALUATION ORDERS RECEIVED. PATIENT DEMONSTRATES NO DEFICITS IN ADL. SLIGHTLY WEAKER LEFT UE BUT NOT SIGNIFICANT. GAVE SUGGESTIONS FOR HEP. PATIENT DOES NOT REQUIRE FURTHER SKILLED TO AT THIS TIME.
--- NOTE | 2021-07-12 16:31 | PM.PN ---
Subjective Subjective: States she feels better today. She got up and ambulated herself to the restroom using IV pole to steady herself. Reports today did not have vertigo. Still has some residual diarrhea kinesis and left upper extremity more so than left lower extremity. Dysmetria has improved. No headache. No chest pain pressure shortness of breath. No nausea or vomiting. Ate breakfast. Vitals/I&O/Wt Last Vital Signs Temp 99.6 F 07/12/21 15:39 Pulse 89 07/12/21 15:39 Resp 18 07/12/21 16:19 BP 190/93 07/12/21 15:39 Pulse Ox 99 07/12/21 15:39 07/12/21 07/12/21 07/12/21 06:59 14:59 22:59 Intake Total 999 1285 / 1285 Balance 999 1285 / 1285 Weight last 48 hrs Weight 76.748 kg Weight 70.307 kg Physical Exam Const: COMMON NORMALS: alert GENERAL APPEARANCE: cooperative ORIENTATION/CONSCIOUSNESS: Yes awake OTHER: In good spirits. HENMT: COMMON NORMALS: normocephalic, EAC's normal, Normal external nose present and moist oral mucous membranes HEAD & SCALP: normocephalic NOSE: Normal external nose present EXTERNAL AUDITORY CANAL: EAC's normal Neck/C-Spine: COMMON NORMALS: no meningeal signs Chest: CHEST: Yes Symmetrical chest wall rise Resp: COMMON NORMALS: clear to auscultation bilaterally AUSCULTATION: clear to auscultation bilaterally Cardio: COMMON NORMALS: regular rate, regular rhythm and No murmurs present (Cardio) RATE: regular rate RHYTHM: regular rhythm GI: COMMON NORMALS: Normal to inspection, nondistended, normoactive bowel sounds present, Soft to palpation and non-tender PALPATION: Yes Soft to palpation Extremity: COMMON NORMALS: no pedal edema Neuro: COMMON NORMALS: moves all extremities SENSORIUM/ORIENTATION: Yes alert MENINGEAL SIGNS: Yes no meningeal signs COORDINATION/BALANCE: No [id number] test normal (Improved L side dysmetria), No Normal rapid alternating movements of the distal upper extremity present (Neuro) (Persistent on L) and other SPEECH: speech normal SENSORY EXAM: Yes extremities (Symmetrical) and Normal double simultaneous stimulation for sensation; No sensory level loss detected MOTOR EXAM: 5/5 motor strength present throughout COORDINATION: [id number] test abnormal (Improved L side dysmetria), abnormal rapid alternating movement UE (Persistent on L) and other OTHER: Awake and alert. Readily follows directions. No trouble tracking. No diplopia or vertigo triggered with horizontal or vertical tracking. Visual may full to confrontation. No facial droop. Psych: COMMON NORMALS: mental status grossly normal Skin: COMMON NORMALS: no wounds RASHES: no rashes Data : 07/11/21 14:06 07/11/21 17:45 A&P Assessment and plan (1) CVA (cerebral vascular accident): Hold further IV fluid. Monitor for change in symptoms. Any rapid change in blood pressure. Discussed with her avoiding rapid decrease in blood pressure given posterior circulation CVA, risk for life-threatening edema. We may resume antihypertensives gradually, starting with half dose labetalol to avoid beta-gay withdrawal, tonight or tomorrow morning depending on blood pressures. Gradually escalate over at least several days back to her usual regimen. Acute infarct in left middle cerebellar peduncle, old infarct in right cerebellar peduncle. Discussed with her and her . Outside the window for tPA or intervention. Noted MRI results with areas of moderate stenosis at the intracranial segments of internal carotid arteries, left greater than right. Discussed with her risk factors of CVA, including smoking, HTN, diabetes. Does have family history of CVA as well. Continue aspirin, statin. Posterior circulation CVA. Avoid blood rapid pressure decrease. Monitor on telemetry. TTE -normal EF, grade 1 diastolic dysfunction, mild MR, trace TR, trivial pericardial effusion A1c 8.5, can benefit from better diabetes control Assessment by therapy Stop NSAIDs Status: Acute (2) Smoking addiction: Patient encourage cessation. Status: Acute (3) Carotid artery stenosis: Moderate, left greater than right Status: Acute (4) HTN (hypertension): Stop IVF, depending on blood pressures, symptoms consider gradual resumption of half dose labetalol, then gradually returning to prior antihypertensive regimen. May need to be further optimized long-term. Will need optimization of control of hypertension. Also with noted adrenal incidentaloma, currently undergoing work-up for hypersecretion. Reports sometimes episodes of lightheadedness, discussed with her will be useful to determine that does not have pheochromocytoma. Stop NSAIDs Status: Acute (5) Diabetes: A1c 8.5. Continue metformin. Consistent carbohydrate diet. May benefit from better control. Status: Acute Plan Chronic right abdominal, epigastric pain. Pending arrangements for EGD, colonoscopy. Chronic constipation: Continue lactulose Attestations Medical Necessity Statement*: Continue admission for assessment management of posterior circulation CVA Coding Level of Care Code Acute Transition Advisor for [facility] Fwd Diagnoses CVA (cerebral vascular accident) I63.9 Smoking addiction F17.200 Carotid artery stenosis I65.29 HTN (hypertension) I10 Diabetes E11.9
[2021-07-12] MEDS: nicotine 21 mg Patch 1 PATCH TRANSDERMA (20:33)
[2021-07-12] MEDS: atorvastatin 40 mg Tablet PO (20:34)
[2021-07-13] VITALS (7 sets, daily range): BP systolic 178–204; BP diastolic 84–103; PULSE 73–88; RESP 16–17; TEMP 36.4–36.9; O2SAT 94–98
[2021-07-13] MEDS: morphine 4 mg/mL SDV 1 mL 2 MG IVP (04:05)
[2021-07-13] MEDS: heparin 5,000 unit/mL INJ 1 mL 5000 UNIT SUBCUT ×2 (04:11→12:39)
[2021-07-13 06:05] LABS: Basophils % 0.5 %; Eosinophils # 0.1 10^3/uL (0.0-0.8); Eosinophils % 1.5 %; Hematocrit 44.8 % (37.0-47.0); Lymphocytes # 3.6 10^3/uL (0.8-4.8); Lymphocytes % 48.6 %; Mean Corpuscular HGB Conc 33.5 g/dL (30.0-36.0); Mean Corpuscular Volume 92.6 fl (81-99); Monocytes # 0.6 10^3/uL (0.2-0.9); Neutrophils # 3.02 10^3/uL (1.8-7.7); Neutrophils % 41.3 %; Nucleated Red Blood Cells % 0 %; Platelet Count 345 10^3/cmm (130-400); Red Blood Count 4.84 10^6/uL (4.1-5.3); Red Cell Distribution Width 12.1 % (12.1-15.1); White Blood Count 7.3 10^3/uL (4.0-10.0)
[2021-07-13 06:51] LABS: Anion Gap 16.3 (5-19); Blood Urea Nitrogen 9 mg/dL (6-20); Calcium 10.2 mg/dL (8.5-10.5); Carbon Dioxide 21 mmol/L (22-29); Chloride 102 mmol/L (98-107); Glomerular Filtration Rate 238.5 mL/min (90-130); Glucose 198 mg/dL (65-115); Osmolality Calculated 286 mOsm/kg (285-295); Potassium 3.3 mmol/L (3.5-5.1); Sodium 136 mmol/L (136-145)
[2021-07-13] MEDS: venlafaxine ER (24HR) 37.5 mg Capsule PO (09:30)
[2021-07-13] MEDS: metformin 500 mg Tablet 1000 MG PO (09:30)
[2021-07-13] MEDS: potassium chloride ER 20 mEq Tablet PO (09:31)
[2021-07-13] MEDS: labetalol 200 mg Tablet 50 MG PO (09:31)
[2021-07-13] MEDS: aspirin 81 mg EC Tablet 162 MG PO (09:31)
--- NOTE | 2021-07-13 16:00 | PM.DCS ---
Discharge Providers Date of Admission: 07/11/21 18:40 Date of Discharge: July 13, 2021 Attending Provider at Admission: Ion Forbes Attending Provider at Discharge: Ion Forbes Primary Care Provider: ALMA DELIA Cunningham Diagnoses at Discharge Discharge Diagnosis (1) CVA (cerebral vascular accident): Status: Acute (2) Smoking addiction: Status: Acute (3) Carotid artery stenosis: Status: Acute (4) HTN (hypertension): Status: Acute (5) Diabetes: Status: Acute Reason for Visit Reason for Visit: Dizzy, vomiting, headache Hospital Course Hospital Course Pleasant 45-year-old lady current smoker with DM2, HTN, adrenal mass incidentally noted on CT scan due to abdominal pain for which she has also been preparing to undergo endoscopic correlation with surgery. She is followed up with endocrinology and is in process evaluation for possible adrenal secreting adenoma. Presented to the hospital with unsteady gait, vertigo since Sunday. Found to have acute and subacute cerebellar infarction on MRI side window for intervention. MRI showed acute infarct in left middle cerebellar peduncle, old infarct in right cerebellar peduncle. Discussed with her and her . Outside the window for tPA or intervention. Was started on aspirin, statin. Allowed permissive hypertension, initially with IV hydration. Had MRA with areas of moderate stenosis at the intracranial segments of internal carotid arteries, left greater than right, with unremarkable neck MRA. Blood pressure medications were held and instructed to resume gradually. Restarted on half dose labetalol only for now, and is to resume them gradually over the next 3-4 days. Instructed her to avoid significant decrease in blood pressure. Long-term will need better blood pressure control, target 120/80. Was counseled extensively on smoking cessation. A1c indicates diabetes control could be improved upon. 8.5. Continues on metformin. Started also on empagliflozin. Started on statin. Asked to discontinue diclofenac due to it being possible adverse effect. Her symptoms showed improvement, although she has persistent minimal dysmetria in the left upper extremity, mild diadochokinesis, minimal dysmetria in the left lower extremity. She otherwise has done well with therapy, ambulates with a walker and may be able to downgrade to a cane. In case of concerning symptoms she now knows to seek medical attention immediately. She is asked for now to postpone endoscopic evaluation until she recovers from CVA. Please follow-up blood pressure, and reassess resumption of her antihypertensives. Reassess symptoms. Assisted with smoking cessation, and help with optimization of cardiovascular risk factors. Physical Exam Narrative: at bedside Const: COMMON NORMALS: alert GENERAL APPEARANCE: cooperative ORIENTATION/CONSCIOUSNESS: Yes awake OTHER: In good spirits. HENMT: COMMON NORMALS: normocephalic, EAC's normal, Normal external nose present and moist oral mucous membranes HEAD & SCALP: normocephalic NOSE: Normal external nose present EXTERNAL AUDITORY CANAL: EAC's normal Neck/C-Spine: COMMON NORMALS: no meningeal signs Chest: CHEST: Yes Symmetrical chest wall rise Resp: COMMON NORMALS: clear to auscultation bilaterally AUSCULTATION: clear to auscultation bilaterally Cardio: COMMON NORMALS: regular rate, regular rhythm and No murmurs present (Cardio) RATE: regular rate RHYTHM: regular rhythm GI: COMMON NORMALS: Normal to inspection, nondistended, normoactive bowel sounds present, Soft to palpation and non-tender PALPATION: Yes Soft to palpation Extremity: COMMON NORMALS: no pedal edema Neuro: COMMON NORMALS: moves all extremities SENSORIUM/ORIENTATION: Yes alert MENINGEAL SIGNS: Yes no meningeal signs COORDINATION/BALANCE: No [id number] test normal (Improved L side dysmetria), No Normal rapid alternating movements of the distal upper extremity present (Neuro) (Persistent on L) and other SPEECH: speech normal SENSORY EXAM: Yes extremities (Symmetrical) and Normal double simultaneous stimulation for sensation; No sensory level loss detected COORDINATION: [id number] test abnormal (Improved L side dysmetria), abnormal rapid alternating movement UE (Persistent on L) and other OTHER: Awake and alert. Readily follows directions. No trouble tracking. No diplopia or vertigo triggered with horizontal or vertical tracking. Visual may full to confrontation. No facial droop. Psych: COMMON NORMALS: mental status grossly normal Skin: COMMON NORMALS: no wounds RASHES: no rashes Discharge Data Studies Completed and Pending Completed Studies During Hospitalization Category Date Time Status CT head wo con* [id number] Urgent Cat Scan 07/11/21 12:45 Completed MR angio neck wo con [id number] Urgent MRI 07/11/21 15:50 Completed MR head wo con* [id number] Urgent MRI 07/11/21 14:19 Completed MRA head [MR angio head wo con [id number]] Urgent MRI 07/11/21 15:41 Completed CV. echo complete* [id number] Routine Ultrasound 07/12/21 06:00 Completed Pending at discharge Category Date Time Status Basic Metabolic Panel AM LABS Lab 07/14/21 04:00 Ordered Basic Metabolic Panel AM LABS Lab 07/15/21 04:00 Ordered Complete Blood Count w/Auto AM LABS Lab 07/14/21 04:00 Ordered Complete Blood Count w/Auto AM LABS Lab 07/15/21 04:00 Ordered Radiology Impressions Head CT 07/11/21 12:45 IMPRESSION: 1. No acute intracranial hemorrhage or edema. 2. Cerebral atrophy and small vessel ischemic disease. 3. 10 mm low-attenuation lesion in the RIGHT middle cerebellar peduncle. This is probably a prior lacunar infarct. Recommend follow-up MRI brain with contrast on a nonurgent basis to exclude underlying neoplasm. 4. Small lacunar infarct RIGHT basal ganglia. Head MRI 07/11/21 14:19 IMPRESSION: Acute infarct in the left middle cerebellar peduncle. There appears to be an old infarct in the right cerebellar peduncle corresponding to findings on prior CT. ADDENDUM: 07/11/21 1851 Findings were discussed with DERECK RODRIGUEZ at 07/11/2021 6:48 PM CDT. Head MRA 07/11/21 15:41 IMPRESSION: Areas of moderate stenosis seen at the intracranial segments of the internal carotid arteries, left greater than right. No occlusion. Neck MRA 07/11/21 15:50 IMPRESSION: No stenosis or occlusion. REFERENCES: NASCET CRITERIA. The degree of internal carotid artery stenosis is based on NASCET criteria. Normal is no stenosis. Mild is less than 50% stenosis. Moderate is 50-69% stenosis. Severe is 70% to 99% stenosis. Total occlusion is no detectable patent lumen. Laboratory Results WBC 7.3 10^3/uL (4.0-10.0) 07/13/21 05:47 RBC 4.84 10^6/uL (4.1-5.3) 07/13/21 05:47 Hgb 15.0 g/dL (11.5-15.3) 07/13/21 05:47 Hct 44.8 % (37.0-47.0) 07/13/21 05:47 MCV 92.6 fl (81-99) 07/13/21 05:47 MCH 31.0 pg (28.0-34.0) 07/13/21 05:47 MCHC 33.5 g/dL (30.0-36.0) 07/13/21 05:47 RDW 12.1 % (12.1-15.1) 07/13/21 05:47 Plt Count 345 10^3/cmm (130-400) 07/13/21 05:47 MPV 9.0 fL (7.4-10.4) 07/13/21 05:47 Neut % (Auto) 41.3 % 07/13/21 05:47 Lymph % (Auto) 48.6 % 07/13/21 05:47 [place] % (Auto) 8.0 % 07/13/21 05:47 Eos % (Auto) 1.5 % 07/13/21 05:47 Baso % (Auto) 0.5 % 07/13/21 05:47 Neut # (Auto) 3.02 10^3/uL (1.8-7.7) 07/13/21 05:47 Lymph # (Auto) 3.6 10^3/uL (0.8-4.8) 07/13/21 05:47 [place] # (Auto) 0.6 10^3/uL (0.2-0.9) 07/13/21 05:47 Eos # (Auto) 0.1 10^3/uL (0.0-0.8) 07/13/21 05:47 Baso # (Auto) 0.0 10^3/uL (0.0-0.1) 07/13/21 05:47 Nucleated RBC % (auto) 0 % 07/13/21 05:47 Nucleated RBCs # 0.0 /100WBC 07/13/21 05:47 Sodium 136 mmol/L (136-145) 07/13/21 05:47 Potassium 3.3 mmol/L (3.5-5.1) L 07/13/21 05:47 Chloride 102 mmol/L (98-107) 07/13/21 05:47 Carbon Dioxide 21 mmol/L (22-29) L 07/13/21 05:47 Anion Gap 16.3 (5-19) 07/13/21 05:47 BUN 9 mg/dL (6-20) 07/13/21 05:47 Creatinine 0.3 mg/dL (0.5-0.9) L 07/13/21 05:47 GFR Calculation 238.5 mL/min (90-130) H 07/13/21 05:47 Glucose 198 mg/dL (65-115) H 07/13/21 05:47 POC Glucose 171 mg/dL (70-110) H 07/11/21 21:15 Estimat Average Glucose 197 07/12/21 04:03 Hemoglobin A1c 8.5 % (4.0-6.0) H 07/12/21 04:03 Calculated Osmolality 286 mOsm/kg (285-295) 07/13/21 05:47 Calcium 10.2 mg/dL (8.5-10.5) 07/13/21 05:47 Total Bilirubin 0.2 mg/dL (0.15-1.2) 07/11/21 17:45 AST 12 U/L (0-32) 07/11/21 17:45 ALT 17 U/L (0-33) 07/11/21 17:45 Alkaline Phosphatase 82 IU/L (35-105) 07/11/21 17:45 Total Protein 6.5 g/dL (6.6-8.7) L 07/11/21 17:45 Albumin 3.6 g/dL (3.5-5.2) 07/11/21 17:45 Globulin 2.9 g/dL (1.3-4.6) 07/11/21 17:45 Triglycerides 283 mg/dL (0-150) H 07/12/21 04:03 Cholesterol 259 mg/dL (0-200) H 07/12/21 04:03 LDL Cholesterol, Calc 169 mg/dL (50-129) H 07/12/21 04:03 HDL Cholesterol 33 mg/dL (60-100) L 07/12/21 04:03 LDL/HDL Ratio 5.12 RATIO (0.00-3.22) H 07/12/21 04:03 Cholesterol/HDL Ratio 7.85 mg/dL (0.0-4.40) H 07/12/21 04:03 HCG, Qual Negative (Negative) 07/11/21 14:06 Vitals Last Vital Signs Temp 98.3 F 07/13/21 10:40 Pulse 86 07/13/21 10:40 Resp 17 07/13/21 10:40 BP 178/90 07/13/21 10:40 Pulse Ox 94 07/13/21 10:40 Discharge Plan Discharge Patient Disposition: Home Condition: Stable Prescriptions: New atorvastatin 40 mg Tablet 40 mg PO BEDTIME Qty: 90 0RF aspirin 81 mg Tablet,Delayed Release (Dr/Ec) 81 mg PO DAILY Qty: 90 0RF nicotine 21 mg/24 hr Patch 24 Hour 1 patch transdermal Q24H Qty: 90 3RF nicotine (polacrilex) 4 mg Lozenge 4 mg mucous membrane Q4H PRN (Reason: Nicotine Cravings) Qty: 90 3RF empagliflozin 10 mg tablet 10 mg PO DAILY Qty: 90 0RF Continued lactulose 10 gram/15 mL solution 15 ml PO BID 14 Days Qty: 420 0RF ondansetron HCl 4 mg tablet 4 mg PO Q8H 0RF venlafaxine [Effexor XR] 37.5 mg capsule,extended release 24hr 37.5 mg PO DAILY Qty: 30 0RF labetalol 100 mg tablet 100 mg PO BID 0RF metformin 1,000 mg tablet 1,000 mg PO BID 0RF Changed labetalol 100 mg tablet 50 mg PO BID Qty: 0 0RF Held lisinopril 10 mg tablet 10 mg PO DAILY 0RF Hold Instructions: Resume on 07/16/21. Discontinued diclofenac sodium 50 mg tablet,delayed release (DR/EC) 50 mg PO Q8H PRN (Reason: pain) Qty: 60 0RF Discharge Orders: Discharge Order (Routine); Ordered 07/13/21 Ordered By: Ion Forbes Other Ambulatory Orders: DME: Walker (Order) Location: None Selected Ordered By: Ion Forbes Referrals: [facility] [Provider Group] - 1 week (CVA) Ruth Vieira FNP [Primary Care Provider] - 4-7 days Fitz Baltazar MD [Family Provider] - Discharge Diet: Cardiac and Diabetic Discharge Activity: Increase activity as tolerated, Use walker/crutches as instructed and As per PT/OT instructions Patient Instructions: Type 2 Diabetes, Empagliflozin (By mouth), How to Stop Smoking (GEN), Cigarette Smoking and Your Health (GEN), Chronic Hypertension (DC), Stroke (GEN) Activity Restrictions/Additional Instructions: Please follow-up with your primary doctor and with neurologist regarding cerebellar strokes. Stop smoking continue smoking which is risk of recurrence of stroke, as well as other complications. Heart attack, complaints of lung disease, cancer and other. Resume your blood pressure medication gradually over the next 3-4 days, increase labetalol back to 100 mg twice daily if your blood pressure remains above 150/90 in the next 2 days, then resume lisinopril initially at half dose for 2 days, then if blood pressure remains elevated resume usual dose of 10 mg daily. Work with your primary doctor to continue optimization of diabetes control. Your A1c is 8.5. Diabetes can be better controlled. You are additionally started on empagliflozin. Would not continue diclofenac as it may increase your risk of stroke. Discussed moderate carotid stenosis with your primary doctor. Continue to optimize risk factors of cardiovascular disease with your primary doctor. Follow-up with your primary doctor and mine administrator supervisor regarding work-up for possible hormonal secretion from adrenal mass in case of possible pheochromocytoma. Discussed with your primary doctor and surgeon postponing endoscopic evaluation until you are well recovered after your stroke. Discharge Attestations Time Spent in Discharge Care*: greater than 30 min Quality Metrics Clinical Quality Measures [ Cerebrovascular Accident { Contraindication to Antithrombotic: None; antithrombotic prescribed; Contraindication to Anticoagulation: Overlap treatment not indicated; Contraindication to Statin: None; Statin prescribed;}] Coding Level of Care Code Acute g FW DC note Diagnoses CVA (cerebral vascular accident) I63.9 Smoking addiction F17.200 Carotid artery stenosis I65.29 HTN (hypertension) I10 Diabetes E11.9
--- NOTE | 2021-07-13 16:37 | PC.NURSE ---
DISCHARGE PAPERWORK GONE OVER WITH PT AND HER SIGNIFICANT OTHER. ALL QUESTIONS ANSWERED FOR PT AND AND HER SIGNIFICANT OTHER. IV REMOVED. PT TOLERATED WELL. CATHETER TIP INTACT. PT SAFELY WHEELED OUT BY THE AID.
== END 2021-07-13 16:41 | disposition home or self-care (01) | DRG 66 ==
LOC: ER 13:22 → MEDSURG 19:21
PROVIDERS: Physician Assistant; Admitting Provider Internal Medicine; Emergency Provider Emergency Medicine; PCP Nurse Practitioner Family; Visit Provider Internal Medicine
DX: I63.9 Cerebral infarction, unspecified (principal); E11.9 Type 2 diabetes mellitus without complications; I10 Essential (primary) hypertension; F17.210 Nicotine dependence, cigarettes, uncomplicated; I65.23 Occlusion and stenosis of bilateral carotid arteries; Z79.84 Long term (current) use of oral hypoglycemic drugs
CPT/HCPCS: 36415; 36416; 70450; 70544; 70547; 70551; 80048; 80053; 80061; 82088; 82384; 82530; 82533; 82570; 82962; 83036; 84244; 84703; 85025; 92523; 92610; 93005; 93306; 96361; 96372; 96374; 96375; 97110; 97116; 97161; 99285; J1200; J1644; J2270; J2405; J2765; J7030

== ENCOUNTER → 2021-08-02 07:52 | Outpatient (BNVA) | payer MEDICARE, SELFPAY | PROVIDERS: PCP Nurse Practitioner Family; Visit Provider Specialist | DX: I65.29 Occlusion and stenosis of unspecified carotid artery (principal); Z86.73 Personal history of transient ischemic attack (TIA), and cerebral infarction without residual deficits; E11.9 Type 2 diabetes mellitus without complications; Z79.84 Long term (current) use of oral hypoglycemic drugs; I10 Essential (primary) hypertension; F17.210 Nicotine dependence, cigarettes, uncomplicated | CPT/HCPCS: 99205 ==

== ENCOUNTER 2021-09-30 06:08 | Day surgery (SDC) | payer MEDICARE, SELFPAY ==
[2021-09-28 11:47] VITALS: BMI 25.1
[2021-09-30 06:26] VITALS: BP 102/79; PULSE 102; RESP 18; TEMP 36.4; O2SAT 99
[2021-09-30] MEDS: sodium chloride 0.9% 1,000 ML 30 ML IV (06:40)
--- NOTE | 2021-09-30 06:55 | ANES.PREANE2 ---
Pre-Anesthetic Assessment Height/Weight: Height 1.65 m Weight 68.492 kg Temp Pulse Resp BP Pulse Ox O2 Del Method 97.5 F L 102 H 18 102/79 99 09/30/21 06:26 09/30/21 06:26 09/30/21 06:26 09/30/21 06:26 09/30/21 06:26 09/30/21 06:26 Preop Diagnosis: upper gi symptoms Operation Date: 09/30/21 07:30 Proposed Procedures p EGD 65000/93135/r19.5/k59/r10.9(Not Applicable) - Goyo Schaffer MD s Colonoscopy(Not Applicable) - Goyo Schaffer MD Familial anesthetic complications: none Was Beta Darell taken within 24 hours: Yes Was Clonidine taken within 24 hours: N/A Last intake: Intake Last Liquid Date 09/29/21 Last Liquid Time 16:00 Last Solid Date 09/28/21 Last Solid Time 23:00 Social Tobacco and No alcohol Exam alert, oriented x 3, clear to auscultation bilaterally and regular rate & rhythm Airway Submandibular: within normal limits Cervical ROM: within normal limits Mallampati: Class I Dentition: false CV/HEM Hypertension and Peripheral Vascular Disease Carotid artery stenosis METS > 4 TTE 07/12/21 CONCLUSIONS ?LV systolic function is normal with EF of 55-60% ?Grade 1 diastolic dysfunction ?Mild mitral regurgitation ?Trace tricuspid regurgitation ?Trivial pericardial effusion is seen ?No comparison studies are available Hepatic None reported GI Adrenal mass Metabolic Diabetes Mellitus [facility] [place] None reported Neuropsych Cerebrovascular Accident (Left sided weakness ) Anesthetic Plan ASA status: 3 (45 year old diabetic smoker with hx of stroke with left sided weakness, carotid artery stenosis, and GI discomfort. ) Anesthesia: Anesthesia Evaluation, General and MAC Other: I discussed with the patient risks, goals, and benefits of MAC and general anesthesia. We discussed spectrum of MAC anesthesia including conversion to general as well as possibility of recall of intraoperative stimuli including discomfort/pain. Patient agrees to proceed with MAC. Risk of > 500 ml blood loss (7ml/kg in children): No Medications/Allergies Home Medications Medication Instructions Recorded Confirmed Last Taken Type aspirin 81 mg tablet,delayed 81 mg PO DAILY #90 tabs 07/13/21 09/30/21 09/29/21 Rx release atorvastatin 40 mg tablet 40 mg PO BEDTIME #90 tabs 05/01/2409/30/21 09/29/21 Rx lactulose 10 gram/15 mL oral 10 g (15 mL) PO BID PRN 08/18/21 09/30/21 09/29/21 Rx solution constipation #473 mL empagliflozin 10 mg tablet 10 mg PO DAILY diabetes 09/28/21 09/30/21 09/29/21 History (Jardiance) labetalol 100 mg tablet 100 mg PO DAILY #90 tabs 09/28/21 09/30/21 09/30/21 Rx metformin 1,000 mg tablet 1,000 mg PO BID #180 tabs 09/28/21 09/30/21 09/29/21 Rx venlafaxine 37.5 mg 37.5 mg PO DAILY #90 caps 09/28/21 09/30/21 09/29/21 Rx capsule,extended release 24 hr (Effexor XR) Allergies Allergy/AdvReac Type Severity Reaction Status Date / Time No Known Allergies Allergy Verified 09/28/21 13:04 [facility] Anesthesia Medical History Adrenal mass, left Diabetes HTN (hypertension) Surgical History History of back surgery History of History of cholecystectomy Hx of removal of cyst Family History Sister Stroke Other Hypertension Social History Smoking and tobacco status: current every day smoker Alcohol intake: never Lives independently: Yes Household members: spouse Marital status: Current occupational status: unemployed Female Reproductive History Date of last menstrual period: 07/01/21 Data Anesthesia Cardiac Studies: Echocardiogram 07/12/21
--- NOTE | 2021-09-30 06:59 | P.HP_ITS ---
Same Day Surgery H&P Indication for Procedure/HPI DATE OF PROCEDURE: September 30, 2021 CHIEF COMPLAINT/INDICATIONFOR SURGICAL PROCEDURE: EGD/colonoscopy PREOP DIAGNOSIS: upper gi symptoms PLANNED PROCEDURE: Operation Date: 09/30/21 07:30 Proposed Procedures p EGD 27680/18699/r19.5/k59/r10.9(Not Applicable) - Goyo Schaffer MD s Colonoscopy(Not Applicable) - Goyo Schaffer MD Medications/Allergies* Home Medications Medication Instructions Recorded Confirmed Type empagliflozin 10 mg tablet 10 mg PO DAILY diabetes 09/28/21 09/30/21 History (Jardiance) Allergies/Adverse Reactions Allergy/AdvReac Type Severity Reaction Status Date / Time No Known Allergies Allergy Verified 09/28/21 13:04 Pertinent History/Comorbid Conditions* Medical History (Updated 08/02/21 @ 09:57 by Catia Rand MD) Adrenal mass, left Diabetes HTN (hypertension) Surgical History (Updated 06/28/21 @ 14:23 by Goyo Schaffer MD) History of back surgery History of History of cholecystectomy Hx of removal of cyst Family History (Updated 07/11/21 @ 19:23 by Ion Forbes MD) Hypertension Stroke Sister Social History Smoking and tobacco status: current every day smoker Alcohol intake: never Lives independently: Yes Household members: spouse Marital status: Current occupational status: unemployed Pertinent Exam Findings alert, oriented x 3 and regular rate & rhythm Recommendations Surgery/Procedure today Coding Level of Care Code Acute [employer] for Susan Pat
[2021-09-30 07:53] VITALS: BP 92/61; PULSE 89; RESP 18; TEMP 36.1; O2SAT 96
[2021-09-30 08:10] VITALS: BP 103/82; PULSE 88; RESP 20; O2SAT 95
--- NOTE | 2021-09-30 13:16 | ANE.PACU2 ---
Inpatient post-anesthesia follow up: Airway intact: Yes Vital signs: Temperature 97.0 F Pulse Rate 88 Respiratory Rate 20 Blood Pressure 103/82 Pulse Oximetry 95 Oxygen Delivery Me thod Room Air Oxygen Flow Rate 3 Fraction of Inspir ed Oxygen Hydration adequate: Yes Nausea and vomiting: No Pain level: 1 Mental status: Baseline
== END 2021-09-30 08:29 | disposition home or self-care (01) ==
PROVIDERS: PCP Nurse Practitioner Family; Visit Provider Surgery
PROC: 0DJ08ZZ Inspection of Upper Intestinal Tract, Via Natural or Artificial Opening Endoscopic (ICD-10-PCS; CPT 43235; principal; 2021-09-30 07:30)
PROC: 0DJD8ZZ Inspection of Lower Intestinal Tract, Via Natural or Artificial Opening Endoscopic (ICD-10-PCS; CPT 45378; 2021-09-30 07:30)
DX: R19.5 Other fecal abnormalities (principal); K59.00 Constipation, unspecified; R10.9 Unspecified abdominal pain; K44.9 Diaphragmatic hernia without obstruction or gangrene; K29.50 Unspecified chronic gastritis without bleeding; I10 Essential (primary) hypertension; E11.9 Type 2 diabetes mellitus without complications; F17.210 Nicotine dependence, cigarettes, uncomplicated; I69.854 Hemiplegia and hemiparesis following other cerebrovascular disease affecting left non-dominant side
CPT/HCPCS: 43239; 45378; 88305; 88342; J2704; J7030

== ENCOUNTER → 2021-10-18 09:12 | Outpatient (BNVA) | payer MEDICARE, SELFPAY | PROVIDERS: PCP Nurse Practitioner Family; Visit Provider Surgery | DX: Z09 Encounter for follow-up examination after completed treatment for conditions other than malignant neoplasm (principal) | CPT/HCPCS: 99212 ==

== ENCOUNTER 2021-10-24 13:31 | Outpatient (CLI) | payer MEDICARE, SELFPAY ==
[2021-10-24] MEDS: iohexol 350 mg/mL 100 mL Btl IV (13:56)
--- NOTE | 2021-10-24 16:00 | CT_ITS ---
WS: [id number] CT adrenals with and without contrast. HISTORY: adrenal mass Noncontrast 2 mm imaging is performed through the abdomen with attention to the adrenal glands. Addit ional 1 minute and 15 minute delayed images are then performed through the adrenal glands. CONTRAST: Omnipaque 350; 95 mL IV. DLP: 1440.[address] scans at [facility] use at least one of these dose optimization techniques: automated e xposure control; mA and/or kV adjustment per patient size (includes targeted exams where dose is matc hed to clinical indication); or iterative reconstruction. COMPARISON: None available. Lower thorax: Chronic emphysema. Atherosclerosis within the lower thoracic aorta. Small hiatal hernia . Liver: Mildly enlarged measuring 17.2 cm in length. No bile duct dilatation or mass. Gallbladder: Prior cholecystectomy. Pancreas: Normal. Spleen: Normal. ADRENAL GLANDS. RIGHT: Normal. No mass or enlargement. LEFT: There are 2 low-attenuation masses within the LEFT adrenal gland. The larger mass centered in t he lateral adrenal limb measures 2.7 x 2.4 cm. Absolute washout is 75% consistent with an adenoma. Re lative washout is 44% consistent with an adenoma. The smaller mass within the inferior medial adrenal limb measuring 1.7 x 1.1 cm. Absolute washout 78%. Relative washout of 64%. Both washouts consistent with adenoma. Right kidney: As visualized are normal. Left kidney: Mild perinephric stranding. Otherwise negative. Aorta: Calcified plaque and intimal thickening throughout the aorta. There are areas of significant stenosis involving the infrarenal abdominal aorta lumen. Caliber measu res 5.3 mm in diameter. There is ulcerated plaque and intimal thickening which is eccentric to the bi furcation. GI tract: As visualized through the abdomen no obstruction. Constipation. No adenopathy or free fluid. Abdominal wall: Small umbilical hernia. Visualized osseous structures: Negative. CT/CT abdomen wo/w con [id number] IMPRESSION: 1. Bilateral LEFT adrenal limb adenomas. Absolute and relative washout values of each mass are consistent with adenomas. 2. Mild hepatomegaly. 3. Emphysema. 4. Significant atherosclerosis and stenosis involving the abdominal aorta. Thi s is significantly more advanced than expected for a patient of this age. Steno sis is 5.3 mm below the level of the renal arteries. There are multifocal areas of plaque and intimal thickening. Recommend further evaluation by cardiovascul ar physician.
== END 2021-10-24 13:32 | disposition home or self-care (01) ==
PROVIDERS: PCP Nurse Practitioner Family; Visit Provider Internal Medicine
DX: E27.8 Other specified disorders of adrenal gland (principal); D35.02 Benign neoplasm of left adrenal gland; D35.01 Benign neoplasm of right adrenal gland; R16.0 Hepatomegaly, not elsewhere classified; J43.9 Emphysema, unspecified; I70.0 Atherosclerosis of aorta
CPT/HCPCS: 74170

== ENCOUNTER → 2021-10-26 09:41 | Outpatient (BNVA) | payer MEDICARE, SELFPAY | PROVIDERS: PCP Nurse Practitioner Family; Visit Provider Nurse Practitioner Family | DX: E11.9 Type 2 diabetes mellitus without complications (principal); I10 Essential (primary) hypertension; M25.50 Pain in unspecified joint; M25.541 Pain in joints of right hand; M25.542 Pain in joints of left hand | CPT/HCPCS: 80053; 83036; 84550; 86038; 86431 ==

== ENCOUNTER → 2021-11-02 08:59 | Outpatient (BNVA) | payer MEDICARE, SELFPAY | PROVIDERS: PCP Nurse Practitioner Family; Visit Provider Specialist | DX: E11.9 Type 2 diabetes mellitus without complications (principal); I10 Essential (primary) hypertension; Z79.84 Long term (current) use of oral hypoglycemic drugs; F17.200 Nicotine dependence, unspecified, uncomplicated; Z86.73 Personal history of transient ischemic attack (TIA), and cerebral infarction without residual deficits | CPT/HCPCS: 99214 ==

== ENCOUNTER 2022-01-27 08:27 | Outpatient (CLI) | payer MEDICARE, SELFPAY ==
--- NOTE | 2022-01-27 09:00 | CT_ITS ---
WS: [id number] CTA ABDOMINAL AORTA WITH RUNOFF TECHNIQUE: Contrast enhanced CTA of the abdominal aorta with bilateral lower extremity runoff. Multip lanar reformatted images were obtained. MIP reformats were also reviewed. CLINICAL INFORMATION: PAD/Aortic Atherosclerosis COMPARISON: CT October 24, 2021 DLP: 905.[address] scans at [facility] use at least one of these dose optimization techniques: automated e xposure control; mA and/or kV adjustment per patient size (includes targeted exams where dose is matc hed to clinical indication); or iterative reconstruction. FINDINGS: No abdominal aortic aneurysm. Moderate to advanced aortic atheromatous disease abdominal ao rta. Stenosis infrarenal abdominal aorta measuring approximately 60-70%. This is stable since the rec ent CT. Irregular atheromatous disease in the mid and distal abdominal aorta. Celiac and SMA are patent. Proximal renal arteries are patent. Mild calcification LEFT renal artery o rigin. RIGHT: Moderate stenosis RIGHT common iliac artery origin. RIGHT common iliac artery remains patent. Internal iliac artery is patent. Moderate to severe stenosis at the origin. External iliac artery rem ains patent. Common femoral artery is patent. Superficial femoral artery and deep femoral arteries ar e patent. Popliteal artery is patent to the trifurcation. Three-vessel runoff to the ankle. LEFT: Severe high-grade stenosis of the LEFT common iliac artery origin with occlusion/near occlusion . Tiny amount of flow just distal to the origin. Moderate to severe stenosis internal iliac artery or igin which remains patent. External iliac artery is patent. Common femoral and superficial femoral ar teries are patent. Popliteal artery is patent to the trifurcation. Normal 3 vessel runoff to the ankl e. Hepatomegaly. Cholecystectomy. LEFT adrenal adenomas. Portal vein and splenic vein are patent. Lung b ases well aerated. Pancreas appears normal. Normal renal parenchymal enhancement. No hydronephrosis. Normal appendix in the RIGHT lower quadrant. Tiny fat-containing umbilical hernia. Pedicle screw fixa tion L4-L5 with interbody fusion graft. CT/CT angio abd aorta runof [id number] IMPRESSION: 1. RIGHT:Moderate stenosis RIGHT common iliac artery origin partially obscured by beam hardening artifact from the spinal fusion. Otherwise no flow-limiting stenosis RIGHT lower extremity. Three-vessel runoff to the ankle 2. LEFT:Severe high-grade stenosis of the LEFT common iliac artery origin with occlusion/near occlusion. Tiny amount of flow just distal to the origin. Exter nal iliac artery is patent. Common femoral artery is patent. Otherwise no flow- limiting stenosis. Three-vessel runoff to the ankle. 3. Moderate to advanced atheromatous disease abdominal aorta. Approximately 60 -70% stenosis infrarenal abdominal aorta just below the renal arteries. Irregul ar atheromatous disease in the mid and distal abdominal aorta. 4. Celiac and SMA are patent. Renal arteries are patent. 5. Nonvascular findings unchanged from the prior CT.
[2022-01-27] MEDS: iohexol 350 mg/mL 500 mL Btl (per mL) IV (09:26)
== END 2022-01-27 08:28 | disposition home or self-care (01) ==
PROVIDERS: PCP Nurse Practitioner Family; Visit Provider Internal Medicine Cardiovascular Disease
DX: I73.9 Peripheral vascular disease, unspecified (principal); I70.0 Atherosclerosis of aorta; I70.8 Atherosclerosis of other arteries
CPT/HCPCS: 75635; 99204; Q9967

== ENCOUNTER → 2022-02-14 09:55 | Outpatient (BNVA) | payer MEDICARE, SELFPAY | PROVIDERS: PCP Nurse Practitioner Family; Visit Provider Internal Medicine | DX: E11.9 Type 2 diabetes mellitus without complications (principal); E78.5 Hyperlipidemia, unspecified; I63.9 Cerebral infarction, unspecified; R21 Rash and other nonspecific skin eruption; E27.8 Other specified disorders of adrenal gland; Z79.84 Long term (current) use of oral hypoglycemic drugs | CPT/HCPCS: 80053; 80061; 83036; 99214 ==

== ENCOUNTER → 2022-03-03 11:06 | Outpatient (BNVA) | payer MEDICARE, SELFPAY | PROVIDERS: PCP Nurse Practitioner Family; Visit Provider Internal Medicine Cardiovascular Disease | DX: I73.9 Peripheral vascular disease, unspecified (principal); I65.29 Occlusion and stenosis of unspecified carotid artery | CPT/HCPCS: 80048; 85025 ==

== ENCOUNTER 2022-03-07 05:39 | Outpatient (CLI) | payer MEDICARE, SELFPAY ==
[2022-03-07] VITALS (29 sets, daily range): BP systolic 119–180; BP diastolic 61–96; PULSE 83–99; RESP 7–30; TEMP 36.6; O2SAT 90–95; BMI 25.0
--- NOTE | 2022-03-07 06:00 | XACV_ITS ---
Ht: 168 cm Wt: 70 kg BSA: 1.82 m2 Gender: Female : 1975 Exam Type: Invasive Peripheral Vascular Procedure(s): Procedure Description: Peripheral Cath Diagnostic Procedure Exam Priority: Routine Abdominal Diagnostic Findings Distal abdominal aorta: 70-80 % stenosis. Abdominal aorta right below renal artery takeoff, also has another 50- 60% stenosis.. Lower Extremity Diagnostic Findings INDICATION: Significant claudication of left lower extremity/ Abnormal CTA suggesting severe PAD. Left lower extremity findings: Left common iliac artery: Totally occluded. Left external iliac artery: Reconstitutes via collateral blood flow. Is patent. Left common femoral artery: Patent. Left profunda artery: Patent. Left SFA: Patent. Left popliteal artery: Patent. Left TP segment: Patent. Left anterior tibial artery: Patent. Left peroneal artery: Patent. Left posterior tibial artery: Patent. Right lower extremity findings: Right common iliac artery: Has moderate 40 to 50% stenosis. Right external iliac artery: Patent. Right common femoral artery: Patent. Right SFA: Patent. Right profunda artery: Patent. Right popliteal artery: Patent. Right TP segment: Patent. Right anterior tibial artery: Patent. Right peroneal artery: Patent. Right posterior tibial artery: Patent.. Conclusions Severe peripheral artery disease with significant stenosis of the distal aorta and totally occluded left common iliac artery. Recommendations We will refer her to vascular surgery for evaluation. Outpatient follow up in 4 weeks. Access Site Site: Right Femoral artery Sheath Size: 6 Fr Hemost... Success: Unsuccessful Procedure Details Findings Procedure Consent Obtained. Admit Source: Out Patient. Pre-Procedure Time Out. Identified patient by full name and date of as verbalized by the patient/guarantor. Does the consent match the physician's order: Yes. Accurate & Complete Informed Consent: Yes. Inpatient/Outpatient History & Physical on Chart: Yes. If H&P is completed, is and addenduem needed: No; If yes, is the addendum complete: N/A. Visualize and Verify Site with Patient/Guarantor: N/A. Relevant Radiology Images available: Yes. The risks, benefits, and alternatives of sedation and/or procedure were discussed by physician. The patient agrees to continue. Procedure started. Correct patient, site and procedure confirmed by cath team. PERRLA. Strong, equal hand office equipment technician bilaterally. Lungs clear x 5 lobes. IV Site on Arrival: 20 gauge in the left anticubital. IV Fluids: 0.9% NaCl at KVO. 0 mL infused prior to recyclable materials sorter. Pre Procedural Pulses: bilateral dorsalis pedis was 3+. Pre Procedural Pulses: bilateral posterior tibial was Doppled. Pre Procedural Pulses: bilateral radial was 2+. Oxygen started at 2liters/min via nasal canula. bilateral groins was prepped with chloroprep then draped in the usual sterile fashion. Baseline sample Acquired. HR: 84 BPM. Physician notified. Physician arrived. Physician scrubbed in. Time out performed with cath team. Lidocaine 1% infiltrated to the right groin. Arterial access obtained with micropuncture set. A 5FrFr UF catheter in over wire. Abdominal aortogram performed in AP @ 10 mL/sec for a total of 30 mL. Abdominal aortogram performed inDSA in AP @ 10 mL/sec for a total of 20 mL. Catheter removed over the standard wire. Sheath injected in Right common femoral artery and runoff performed @10 ml/sex for a total of 30 ml. Sheath to be pulled in CPRU, dressed with dressing and tape. Post Procedure: Pulses reassessed and unchanged. PERRLA. Strong, equal hand office equipment technician bilaterally. No VTE prophylaxis required. Medication's Wasted: Heparin = 1000 units. Complications: none. Post-op diagnosis: total occluded left common illiac, severe distal aortic stenosis. Estimated blood loss: 5mL-10mL. Responsiveness - Normal response to verbal stimuli; alert and oriented, PERRLA. Airway - Unaffected, no intervention required; spontaneous ventilation. Circulation: W/N/L, pulses unchanged. Nausea/Vomiting: No. Procedure completed. Patient transferred by bed to CPRU. Vital chart was stopped. Procedure Medications Start: 8:00 AM Stop: 8:00 AM Medication: Versed Amount: 1 mg Start: 8:00 AM Stop: 8:00 AM Medication: Fentanyl Amount: 50 mcg Route: I.V. Start: 8:06 AM Stop: 8:06 AM Medication: Versed Amount: 1 mg Start: 8:06 AM Stop: 8:06 AM Medication: Fentanyl Amount: 50 mcg Route: I.V. I, the attending physician, have reviewed and verified all procedure medications. Yes, all medications given per verbal order History/Risk Factors Hypertension: Yes Dyslipidemia: Yes Peripheral Arterial Disease (PAD): Yes Obesity: No Tobacco Use: Current/Recent(w/in 1 year) Prior Interventions PCI: No CABG: No Valve Surgery: No Report Signatures Finalized by Ld Ferrer MD on 03/10/2022 10:25 AM
[2022-03-07] MEDS: diphenhydrAMINE 50 mg Capsule PO (06:20)
[2022-03-07 06:35] LABS: Glucose Point of Care 293 mg/dL (70-110)
--- NOTE | 2022-03-07 07:53 | P.HP_ITS ---
Same Day Surgery H&P Indication for Procedure/HPI DATE OF PROCEDURE: March 07, 2022 CHIEF COMPLAINT/INDICATIONFOR SURGICAL PROCEDURE: Lifestyle limiting claudication PREOP DIAGNOSIS: Lifestyle limiting claudication PLANNED PROCEDURE: Operation Date: 03/07/22 07:00 Proposed Procedures p Peripheral Angiogram 06710,I73.9,R93.89(Not Applicable) - Ld Ferrer M.D Possible percutaneous intervention 46-year-old woman with past medical history of diabetes has been referred for peripheral angiogram secondary to significant claudication pain, absent pulses on the left lower extremity and abnormal CT scan findings. CTA showed near complete to complete occlusion of left common iliac artery. Medications/Allergies* Home Medications Medication Instructions Recorded Confirmed Type biotin 5 mg capsule 5 mg PO DAILY 01/02/22 03/07/22 History ibuprofen 200 mg tablet 200 mg PO Q6H PRN pain 01/02/22 03/07/22 History Allergies/Adverse Reactions Allergy/AdvReac Type Severity Reaction Status Date / Time No Known Allergies Allergy Verified 03/07/22 06:44 Pertinent History/Comorbid Conditions* Medical History (Updated 02/14/22 @ 10:30 by Jasmin Sneed MD) Adrenal mass, left Diabetes Dyslipidemia HTN (hypertension) PAD (peripheral artery disease) Surgical History (Updated 06/28/21 @ 14:23 by Goyo Schaffer MD) History of back surgery History of History of cholecystectomy Hx of removal of cyst Family History (Updated 01/02/22 @ 13:08 by June Carlisle RN) Hypertension Sister Father Mother Stroke Sister Social History Smoking and tobacco status: current every day smoker cigarettes Packs smoked per day: 1 Years cigarettes smoked: 35 Alcohol intake: never Lives independently: Yes Household members: spouse Marital status: Current occupational status: unemployed Pertinent Exam Findings alert, oriented x 3, clear to auscultation bilaterally and regular rate & rhythm Diminished pulses on left lower extremity Conscious Sedation Assessment PATIENT ASSESSED PRIOR TO SEDATION, WITH NO CHANGE NOTED: Yes AIRWAY EVAL/ANESTHESIA PLAN: normal airway, see other exam findings, ASA III, Local Anesthesia, Risks, benefits & alternatives of sedation and/or procedure discussed and Patient agrees to continue as planned ADDITIONAL INFORMATION: Moderate sedation Recommendations Surgery/Procedure today (Peripheral angiogram with possible percutaneous interve ntion) Coding Level of Care Code Acute Farm Equipment Engineer for Susan Pat
--- NOTE | 2022-03-07 08:45 | PC.NURSE ---
Sheath pull Right femoral 6fr pulled. 20 minutes of manual pressure held until hemostasis achieved. No bleeding or hematoma observed. V/s documented on flowsheet. Pt tolerated well, denies pain. Educated on bed rest status and right leg restrictions. PT and DP pulses present. Ambulation time 1445. Dry sterile dressing applied to site, clean dry and intact.
[2022-03-07] MEDS: amlodipine 5 mg Tablet PO (11:03)
[2022-03-07] MEDS: labetalol 200 mg Tablet 100 MG PO (11:03)
[2022-03-07] MEDS: sodium chloride 0.9% 1,000 ML 75 ML IV (11:04)
--- NOTE | 2022-03-07 16:54 | PC.NURSE ---
Discharge Note Patient discharged to home via private vehicle accompanied by Jordy. Discharge instructions reviewed with patient and/or quality control representative. Mobile pharmacy medications and/or prescriptions provided. Belongings/home medications returned. Post angiogram home care instructions.
== END 2022-03-07 16:53 | disposition home or self-care (01) ==
LOC: CCL 05:40 → CSU 09:09
PROVIDERS: PCP Nurse Practitioner Family; Visit Provider Internal Medicine
DX: I70.222 Atherosclerosis of native arteries of extremities with rest pain, left leg (principal); I70.92 Chronic total occlusion of artery of the extremities; I10 Essential (primary) hypertension; E78.5 Hyperlipidemia, unspecified; E11.51 Type 2 diabetes mellitus with diabetic peripheral angiopathy without gangrene; F17.210 Nicotine dependence, cigarettes, uncomplicated
CPT/HCPCS: 36415; 36416; 75625; 75716; 81025; 82962; 96361; 96365; 99152; 99153; C1769; C1887; C1894; G0378; J1644; J2250; J3010; J7030; Q0163; Q9967

== ENCOUNTER → 2022-03-15 11:04 | Outpatient (BNVA) | payer MEDICARE, SELFPAY | PROVIDERS: PCP Nurse Practitioner Family; Visit Provider Nurse Practitioner Family | DX: I73.9 Peripheral vascular disease, unspecified (principal); F17.210 Nicotine dependence, cigarettes, uncomplicated | CPT/HCPCS: 36415; 80048; 99214 ==

== ENCOUNTER → 2022-05-19 08:42 | Outpatient (BNVA) | payer MEDICARE, SELFPAY | PROVIDERS: PCP Nurse Practitioner Family; Visit Provider Nurse Practitioner Family | DX: E11.9 Type 2 diabetes mellitus without complications (principal); R10.9 Unspecified abdominal pain | CPT/HCPCS: 83036 ==

== ENCOUNTER → 2022-06-05 08:38 | Outpatient (BNVA) | payer MEDICARE, SELFPAY | PROVIDERS: PCP Nurse Practitioner Family; Visit Provider Nurse Practitioner Family | DX: N39.0 Urinary tract infection, site not specified (principal); E11.9 Type 2 diabetes mellitus without complications | CPT/HCPCS: 81000; 87077; 87086; 87184 ==

== ENCOUNTER 2022-06-08 06:30 | Outpatient (CLI) | payer MEDICARE, SELFPAY ==
--- NOTE | 2022-06-08 07:15 | US_ITS ---
WS: [id number] Complete ABDOMINAL ULTRASOUND HISTORY: R10.9 - Unspecified abdominal pain COMPARISON: None available. Liver: 16.2 cm in length. Liver is top normal size. Very coarse echotexture throughout the liver. Sli ght loss of the normal portal triads appearance. Surface of the liver is becoming very slightly nodul ar. No mass or bile duct dilatation. Portal Vein: Normal hepatopetal flow with monophasic waveform. Gallbladder: Status post cholecystectomy. CBD: 0.3 cm Pancreas: Normal size and echogenicity. Right kidney: 10.5 cm x 5.4 x 5.8 cm. Cortex:1.6 cm. Normal size and echogenicity. No hydronephrosis or mass. Left kidney: 10.8 cm x 5.6 cm x 6.3 cm. Cortex: 1.1 cm. No mass, cortical thickening or hydronephrosis. Spleen: Normal size and echogenicity. Aorta and IVC: Unremarkable abdominal aorta and IVC. US/US abdomen complete* [id number] Impression: 1. Prior cholecystectomy. 2. Coarse echotexture throughout the liver. Surface changes of the liver sugge sting early cirrhosis. No mass or bile duct dilatation. 3. No renal obstruction.
== END 2022-06-08 06:31 | disposition home or self-care (01) ==
LOC: RAD 06:32
PROVIDERS: PCP Nurse Practitioner Family; Visit Provider Nurse Practitioner Family
DX: R10.9 Unspecified abdominal pain (principal); Z90.49 Acquired absence of other specified parts of digestive tract
CPT/HCPCS: 76700

== ENCOUNTER 2022-06-26 08:32 | Outpatient (CLI) | payer MEDICARE, SELFPAY ==
[2022-06-26 09:39] LABS: Alanine Aminotransferase 15 U/L (0-33); Albumin Level 4.3 g/dL (3.5-5.2); Alkaline Phosphatase 141 U/L (35-105); Anion Gap 14.2 (5-19); Aspartate Amino Transferase 10 U/L (0-32); Blood Urea Nitrogen 11 mg/dL (6-20); Calcium 10.2 mg/dL (8.5-10.5); Carbon Dioxide 24 mmol/L (22-29); Chloride 98 mmol/L (98-107); Chol HDL Ratio 3.78 mg/dL (0.0-4.40); Cholesterol 174 mg/dL (0-200); Glomerular Filtration Rate 170.4 mL/min (90-130); Glucose 308 mg/dL (65-115); HDL Cholesterol 46 mg/dL (60-100); LDL Cholesterol Calculated 87 mg/dL (50-129); LDL HDL Ratio 1.89 RATIO (0.00-3.22); Osmolality Calculated 285 mOsm/kg (285-295); Potassium 4.2 mmol/L (3.5-5.1); Sodium 132 mmol/L (136-145); Total Bilirubin 0.2 mg/dL (0.15-1.2); Total Protein 7.3 g/dL (6.6-8.7); Triglycerides 203 mg/dL (0-150)
[2022-06-26 09:47] LABS: Creatinine Urine, Random 41 mg/dL (28-217); Microalbumin Random Urine 24 ug/dL (0-20)
[2022-06-26 09:49] LABS: Microalbum Creatinine Ratio Ur 585 mg/dL (0-20)
[2022-06-26 11:40] LABS: Lipase 17 U/L (13-60)
[2022-06-26 12:02] LABS: Estmated Average Glucose 275; Hemoglobin A1C 11.2 % (4.0-6.0)
== END 2022-06-26 08:33 | disposition home or self-care (01) ==
LOC: LAB 08:38
PROVIDERS: PCP Nurse Practitioner Family; Visit Provider Internal Medicine
DX: E11.9 Type 2 diabetes mellitus without complications (principal); E78.5 Hyperlipidemia, unspecified; I63.9 Cerebral infarction, unspecified; E27.8 Other specified disorders of adrenal gland; R10.9 Unspecified abdominal pain; R21 Rash and other nonspecific skin eruption; R10.12 Left upper quadrant pain; Z79.84 Long term (current) use of oral hypoglycemic drugs; Z79.4 Long term (current) use of insulin
CPT/HCPCS: 36415; 80053; 80061; 82044; 83036; 83690; 99214

== ENCOUNTER → 2022-09-04 15:01 | Outpatient (BNVA) | payer MEDICARE, SELFPAY | PROVIDERS: PCP Nurse Practitioner Family; Visit Provider Internal Medicine Cardiovascular Disease | DX: I73.9 Peripheral vascular disease, unspecified (principal); I10 Essential (primary) hypertension; E11.9 Type 2 diabetes mellitus without complications; Z79.4 Long term (current) use of insulin; E78.5 Hyperlipidemia, unspecified; Z86.73 Personal history of transient ischemic attack (TIA), and cerebral infarction without residual deficits; F17.210 Nicotine dependence, cigarettes, uncomplicated | CPT/HCPCS: 99214 ==

== ENCOUNTER 2022-09-26 07:27 | Outpatient (CLI) | payer MEDICARE, SELFPAY ==
[2022-09-26 08:11] LABS: Alanine Aminotransferase 14 U/L (0-33); Albumin Level 4.3 g/dL (3.5-5.2); Alkaline Phosphatase 121 U/L (35-105); Blood Urea Nitrogen 18 mg/dL (6-20); Calcium 10.4 mg/dL (8.5-10.5); Carbon Dioxide 24 mmol/L (22-29); Chol HDL Ratio 3.74 mg/dL (0.0-4.40); Cholesterol 198 mg/dL (0-200); Globulin 2.7 g/dL (1.3-4.6); Glomerular Filtration Rate 106.7 mL/min (90-130); Glucose 165 mg/dL (65-115); HDL Cholesterol 53 mg/dL (60-100); LDL Cholesterol Calculated 113 mg/dL (50-129); LDL HDL Ratio 2.13 RATIO (0.00-3.22); Total Bilirubin 0.2 mg/dL (0.15-1.2); Triglycerides 162 mg/dL (0-150)
[2022-09-26 08:17] LABS: Estmated Average Glucose 217; Hemoglobin A1C 9.2 % (4.0-6.0)
[2022-09-26 08:38] LABS: Chloride 104 mmol/L (98-107); Osmolality Calculated 294 mOsm/kg (285-295); Sodium 139 mmol/L (136-145)
[2022-09-26 08:43] LABS: Creatinine Urine, Random 43 mg/dL (28-217); Microalbumin Random Urine 9 ug/dL (0-20)
[2022-09-26 08:44] LABS: Microalbum Creatinine Ratio Ur 209 mg/dL (0-20)
[2022-09-26 08:49] LABS: Anion Gap 15.8 (5-19); Aspartate Amino Transferase 14 U/L (0-32); Potassium 4.8 mmol/L (3.5-5.1)
[2022-09-26 11:08] LABS: Lipase 19 U/L (13-60)
== END 2022-09-26 07:28 | disposition home or self-care (01) ==
PROVIDERS: PCP Nurse Practitioner Family; Visit Provider Internal Medicine
DX: E78.5 Hyperlipidemia, unspecified (principal); E11.9 Type 2 diabetes mellitus without complications; E27.8 Other specified disorders of adrenal gland; K59.00 Constipation, unspecified; Z79.4 Long term (current) use of insulin
CPT/HCPCS: 36415; 80053; 80061; 82044; 83036; 83690; 99214

== ENCOUNTER 2023-03-14 10:57 | Emergency (ER) | payer MEDICARE, SELFPAY ==
[2023-03-14 11:02] VITALS: BP 102/71; PULSE 98; RESP 16; TEMP 36.6; O2SAT 98; BMI 29.8
[2023-03-14 12:13] LABS: Basophils % 0.5 %; Eosinophils % 0.9 %; Hematocrit 46.9 % (36-47); Lymphocytes # 1.4 10^3/uL (0.8-4.8); Lymphocytes % 32.6 %; Mean Corpuscular Volume 90.7 fl (85-98); Mean Platelet Volume 8.9 fL (7.4-10.4); Monocytes # 0.5 10^3/uL (0.2-0.9); Monocytes % 12.4 %; Neutrophils # 2.33 10^3/uL (1.8-7.7); Neutrophils % 53.4 %; Nucleated Red Blood Cells % 0 %; Platelet Count 278 10^3/cmm (157-399); Red Blood Count 5.17 10^6/uL (3.85-5.65); Red Cell Distribution Width 14.1 % (12.1-15.1); White Blood Count 4.36 10^3/uL (3.29-11.43)
[2023-03-14 12:28] LABS: Alanine Aminotransferase 216 U/L (0-33); Alkaline Phosphatase 461 U/L (35-105); Anion Gap 16.4 (5-19); Aspartate Amino Transferase 474 U/L (0-32); Blood Urea Nitrogen 14 mg/dL (6-20); Carbon Dioxide 24 mmol/L (22-29); Chloride 98 mmol/L (98-107); Globulin 3.6 g/dL (1.3-4.6); Glomerular Filtration Rate 76.2 mL/min (90-130); Glucose 194 mg/dL (65-115); Lipase 17 U/L (13-60); Osmolality Calculated 284 mOsm/kg (285-295); Potassium 4.4 mmol/L (3.5-5.1); Sodium 134 mmol/L (136-145); Total Bilirubin 0.2 mg/dL (0.15-1.2); Total Protein 7.6 g/dL (6.6-8.7)
--- NOTE | 2023-03-14 13:45 | CT_ITS ---
WS: [id number] CT ABDOMEN PELVIS TECHNIQUE: Noncontrast CT of the abdomen and pelvis with coronal and sagittal reformatted images. CLINICAL INFORMATION: left flank pain COMPARISON: None. DLP: 746.[address] scans at [facility] use at least one of these dose optimization techniques: automated e xposure control; mA and/or kV adjustment per patient size (includes targeted exams where dose is matc hed to clinical indication); or iterative reconstruction. FINDINGS: Cholecystectomy clips. Mild hepatomegaly. Normal GE junction. Noncontrast spleen is normal. Lobulated LEFT adrenal adenomas unchanged. RIGHT adrenal gland is normal. No obstructing LEFT renal or uretera l calculi. No obstructing RIGHT renal or ureteral calculi. No hydronephrosis in either kidney. Vascul ar calcification. Normal caliber abdominal aorta. Aortic endograft with biiliac extension. Sigmoid diverticulosis. No e vidence of acute diverticulitis. Mild sigmoid constipation. No evidence of high-grade small or large bowel obstruction. Normal appendix in the RIGHT lower quadrant. Prior postoperative changes pedicle s crew fixation L4-5 with interbody fusion graft. IMPRESSION: 1. No obstructing renal or ureteral calculi. No hydronephrosis. 2. Normal appendix in the RIGHT lower quadrant. 3. Aortic endograft with biiliac extension. 4. Stable lobulated LEFT adrenal adenomas. 5. Prior cholecystectomy.
--- NOTE | 2023-03-14 13:56 | W.ED.ABDPA2 ---
HPI - Abdominal Pain General: Chief Complaint: Abdominal Pain Stated Complaint: left side abd pain Time Seen by Provider: 03/14/23 13:15 History of Present Illness: 47-year-old female with diabetes mellitus comes in today with left flank pain radiating to her left hip and abdomen. Patient reports symptoms worse for the last 3 days. Patient does report recurrent symptoms. Patient appears nontoxic. Patient appears in mild to moderate pain. Patient has extensive history for atherosclerosis with stent placement, gastroparesis, hyperlipidemia, type 1 diabetes, neuropathy, and intervertebral disc disease. Review of Systems General: Reports: 10 or more systems reviewed and unremarkable except in HPI and below GI: Reports: abdominal pain : Reports: flank pain Musc: Reports: back pain PFSH ED PFSH: Medical History Adrenal mass, left Diabetes Dyslipidemia HTN (hypertension) Hx of angiography PAD (peripheral artery disease) Surgical History History of back surgery History of History of cholecystectomy Hx of removal of cyst Family History Sister Stroke Hypertension Father Hypertension Mother Hypertension Social History Smoking and tobacco/nicotine status: current every day tobacco/nicotine user cigarettes Packs smoked per day: 1 Years cigarettes smoked: 35 Alcohol intake: never Substance/Drug Use: never Lives independently: Yes Household members: spouse Marital status: Current occupational status: unemployed Physical Exam Const: COMMON NORMALS: alert HENMT: COMMON NORMALS: normocephalic and Normal external nose present HEAD & SCALP: normocephalic NOSE: Normal external nose present Neck/C-Spine: COMMON NORMALS: full ROM Chest: COMMONS NORMALS: normal inspection of the chest Resp: COMMON NORMALS: normal respiratory effort Cardio: COMMON NORMALS: regular rate and regular rhythm RATE: regular rate RHYTHM: regular rhythm GI: COMMON NORMALS: Soft to palpation PALPATION: Yes Soft to palpation : COMMON NORMALS: Yes no CVA tenderness BLADDER/KIDNEY EXAM: Yes no CVA tenderness Back/Pelvis: COMMON NORMALS: no CVA tenderness LUMBAR SPINE/LOWER BACK: Yes paraspinal muscle tenderness Lumbar paraspinal muscle tenderness: left Extremity: COMMON NORMALS: normal to inspection Neuro: SENSORIUM/ORIENTATION: Yes alert Skin: COMMON NORMALS: turgor normal GENERAL SKIN EXAM: turgor normal Course Vital Signs: Vital signs: Vital Signs Temperature 97.9 F 03/14/23 11:02 Pulse Rate 98 03/14/23 11:02 Respiratory Rate 16 03/14/23 11:02 Blood Pressure 102/71 03/14/23 11:02 Pulse Oximetry 98 03/14/23 11:02 Oxygen Delivery Me thod Room Air 03/14/23 11:02 MDM - Abdominal Pain Medical Decision Making 47-year-old female comes in with left flank pain radiating to the left hip and left lower abdomen. On exam abdomen soft normal bowel sounds. No CVA tenderness. Tenderness is noted along the lumbar spine on palpation. Patient also has muscle tightness and tenderness to the left paraspinous muscles. Vital signs are normal. Differential diagnosis includes but not limited to intervertebral disc disease, facet arthropathy, renal calculi, diverticulitis, pyelonephritis, lumbar radiculopathy. CBC showed no significant abnormalities. CMP did show some elevation in liver enzymes. Urinalysis showed increased sugar in the urine but otherwise unremarkable with no signs of infection or significant blood. CT of the abdomen and pelvis without contrast noted no renal calculi or other significant abnormalities. No signs of acute infection could be noted. Patient does have a history of chronic back issues with surgical intervention that she reports about 20 years ago. Believe this is exacerbation of patient's chronic back pain. Recommended follow-up with primary care and may need referral to pain management. Patient was written for some celecoxib for the next 10 days for pain and inflammation. Patient was also given some hydrocodone for severe pain. Patient reported understanding of care plan and need for follow-up or return to the ER. Lab Data 03/14/23 12:07 03/14/23 12:07 Labs/Radiology: Laboratory Results WBC 4.36 10^3/uL (3.29-11.43) 03/14/23 12:07 RBC 5.17 10^6/uL (3.85-5.65) 03/14/23 12:07 Hgb 15.00 g/dL (11.27-16.99) 03/14/23 12:07 Hct 46.9 % (36-47) 03/14/23 12:07 MCV 90.7 fl (85-98) 03/14/23 12:07 MCH 29.0 pg (27-33) 03/14/23 12:07 MCHC 32.0 g/dL (30-55) 03/14/23 12:07 RDW 14.1 % (12.1-15.1) 03/14/23 12:07 Plt Count 278 10^3/cmm (157-399) 03/14/23 12:07 MPV 8.9 fL (7.4-10.4) 03/14/23 12:07 Neut % (Auto) 53.4 % 03/14/23 12:07 Lymph % (Auto) 32.6 % 03/14/23 12:07 Craven % (Auto) 12.4 % 03/14/23 12:07 Eos % (Auto) 0.9 % 03/14/23 12:07 Baso % (Auto) 0.5 % 03/14/23 12:07 Neut # (Auto) 2.33 10^3/uL (1.8-7.7) 03/14/23 12:07 Lymph # (Auto) 1.4 10^3/uL (0.8-4.8) 03/14/23 12:07 Craven # (Auto) 0.5 10^3/uL (0.2-0.9) 03/14/23 12:07 Eos # (Auto) 0.0 10^3/uL (0.0-0.8) 03/14/23 12:07 Baso # (Auto) 0.0 10^3/uL (0.0-0.1) 03/14/23 12:07 Nucleated RBC % (auto) 0 % 03/14/23 12:07 Nucleated RBCs # 0.0 /100WBC 03/14/23 12:07 Sodium 134 mmol/L (136-145) L 03/14/23 12:07 Potassium 4.4 mmol/L (3.5-5.1) 03/14/23 12:07 Chloride 98 mmol/L (98-107) 03/14/23 12:07 Carbon Dioxide 24 mmol/L (22-29) 03/14/23 12:07 Anion Gap 16.4 (5-19) 03/14/23 12:07 BUN 14 mg/dL (6-20) 03/14/23 12:07 Creatinine 0.8 mg/dL (0.5-0.9) 03/14/23 12:07 GFR Calculation 76.2 mL/min (90-130) L 03/14/23 12:07 Glucose 194 mg/dL (65-115) H 03/14/23 12:07 Calculated Osmolality 284 mOsm/kg (285-295) L 03/14/23 12:07 Calcium 11.0 mg/dL (8.5-10.5) H 03/14/23 12:07 Total Bilirubin 0.2 mg/dL (0.15-1.2) 03/14/23 12:07 AST 474 U/L (0-32) H 03/14/23 12:07 ALT 216 U/L (0-33) H 03/14/23 12:07 Alkaline Phosphatase 461 U/L (35-105) H 03/14/23 12:07 Total Protein 7.6 g/dL (6.6-8.7) 03/14/23 12:07 Albumin 4.0 g/dL (3.5-5.2) 03/14/23 12:07 Globulin 3.6 g/dL (1.3-4.6) 03/14/23 12:07 Lipase 17 U/L (13-60) 03/14/23 12:07 HCG, Qual Negative (Negative) 03/14/23 13:40 Urine Color Dark yellow (Yellow) 03/14/23 13:40 Urine Appearance Clear (CLEAR) 03/14/23 13:40 Urine pH 6 (5-7) 03/14/23 13:40 Ur Specific [place] 1.015 (1.005-1.030) 03/14/23 13:40 Urine Protein Trace (Negative) 03/14/23 13:40 Urine Glucose (UA) 4+ (Normal) H 03/14/23 13:40 Urine Ketones 1+ (Negative) H 03/14/23 13:40 Urine Blood Neg (Negative) 03/14/23 13:40 Urine Nitrate Negative (Negative) 03/14/23 13:40 Urine Bilirubin Neg (Negative) 03/14/23 13:40 Urine Urobilinogen Norm mg/dL (Negative) 03/14/23 13:40 Ur Leukocyte Esterase Negative (Negative) 03/14/23 13:40 Urine RBC None /hpf (0-2) 03/14/23 13:40 Urine WBC 0-4 /hpf (0-5) H 03/14/23 13:40 Ur Squamous Epith Cells 10-15 /hpf (0-5) H 03/14/23 13:40 Amorphous Sediment Not Reportable 03/14/23 13:40 Urine Bacteria Trace /hpf (NONE) 03/14/23 13:40 All radiology interpretation(s) finalized by discharge Discharge Plan Discharge Patient Disposition: Home Clinical Impression: Left lumbar radiculitis Condition: Stable Prescriptions: New celecoxib 100 mg capsule 100 mg PO BID Qty: 20 0RF hydrocodone-acetaminophen 5-325 mg tablet 1 tab PO Q6H PRN (Reason: pain) Qty: 10 0RF No Action biotin 5 mg capsule 5 mg PO DAILY ibuprofen 200 mg tablet 200 mg PO Q6H PRN (Reason: pain) aspirin 81 mg tablet,delayed release (DR/EC) 81 mg PO DAILY Qty: 30 0RF insulin glargine [Lantus Solostar U-100 Insulin] 100 unit/mL (3 mL) insulin pen 42 unit SUBCUT DAILY 60 Days Qty: 25.2 1RF docusate sodium [Stool Softener] 100 mg capsule 100 mg PO DAILY atorvastatin 40 mg tablet 40 mg PO BEDTIME Qty: 90 0RF Jardiance 10 mg tablet 10 mg PO DAILY Qty: 90 0RF Rx Instructions: Please fill on 340B program (DME) pen needle, diabetic [Comfort EZ Pen Sandy] 31 gauge x 5/16 needle See Rx Instructions .Route Qty: 100 0RF Rx Instructions: As directed venlafaxine [Effexor XR] 37.5 mg capsule,extended release 24hr 37.5 mg PO DAILY Qty: 90 0RF pantoprazole [Protonix] 40 mg tablet,delayed release (DR/EC) 40 mg PO DAILY Qty: 90 0RF clopidogrel 75 mg tablet 75 mg PO DAILY Qty: 90 0RF gabapentin [Neurontin] 100 mg capsule 200 mg PO BID 30 Days Qty: 360 0RF labetalol 100 mg tablet 100 mg PO DAILY Qty: 90 0RF Discharge Orders: Discharge ED (Routine); Ordered 03/14/23 Ordered By: Troy Smith Referrals: Ruth Vieira FNP [Primary Care Provider] - Discharge Diet: Usual diet Discharge Activity: Increase activity as tolerated Patient Instructions: Lumbar Radiculopathy (ED), Opioid Safety Activity Restrictions/Additional Instructions: Take medication as directed. Use acetaminophen and celecoxib to help control pain. Use hydrocodone for severe pain. Drink plenty of water with medications. Do not use ibuprofen with celecoxib. Follow-up with primary care for further instructions. Return to ED for new concerns. Coding Level of Care Code ED Adult High School Instructor for Susan Pat
[2023-03-14 13:58] LABS: Add Urine Microscopic? YES; Bilirubin Urine Neg (Negative); Blood Urine Neg (Negative); Glucose Urine UA 4+ (Normal); HCG Qualitative Urine. Negative (Negative); Ketones Urine 1+ (Negative); Leukocyte Esterase Urine Negative (Negative); Nitrate Urine Negative (Negative); Protein Urine Trace (Negative); Specific Gravity, Urine 1.015 (1.005-1.030); Urine Appearance Clear (CLEAR); Urine Color Dark Yellow (Yellow); Urobilinogen Urine Norm (Negative); pH Urine 6 (5-7)
[2023-03-14] MEDS: ondansetron 4 MG Tablet PO (14:18)
[2023-03-14] MEDS: HYDROcodone-acetaminophen 7.5-325 mg Tablet 1 TAB PO (14:18)
[2023-03-14 14:37] LABS: Add Urine Culture? No; Bacteria Urine TRACE /hpf; WBC Urine 0-4 /hpf (0-5)
== END 2023-03-14 15:02 | disposition home or self-care (01) ==
PROVIDERS: Emergency Medicine; Emergency Provider Nurse Practitioner Family; PCP Nurse Practitioner Family
DX: M54.16 Radiculopathy, lumbar region (principal); Z79.02 Long term (current) use of antithrombotics/antiplatelets; Z79.82 Long term (current) use of aspirin; Z79.4 Long term (current) use of insulin; E11.9 Type 2 diabetes mellitus without complications; E78.5 Hyperlipidemia, unspecified; I10 Essential (primary) hypertension; Z72.0 Tobacco use
CPT/HCPCS: 36415; 74176; 80053; 81001; 81025; 83690; 85025; 99284; Q0162

== ENCOUNTER → 2023-03-20 16:35 | Outpatient (BNVA) | payer MEDICARE, SELFPAY | PROVIDERS: PCP Nurse Practitioner Family; Visit Provider Nurse Practitioner Family | DX: R10.9 Unspecified abdominal pain (principal); I10 Essential (primary) hypertension; R74.8 Abnormal levels of other serum enzymes; Z79.899 Other long term (current) drug therapy; R11.0 Nausea | CPT/HCPCS: 80053; 82150; 83690; 85025; 86705; 86706; 86709; 86803; 87340 ==

== ENCOUNTER 2023-03-28 07:49 | Outpatient (CLI) | payer MEDICARE, SELFPAY ==
[2023-03-28 08:35] LABS: Alanine Aminotransferase 26 U/L (0-33); Albumin Level 4.1 g/dL (3.5-5.2); Alkaline Phosphatase 161 U/L (35-105); Anion Gap 15.3 (5-19); Aspartate Amino Transferase 12 U/L (0-32); Blood Urea Nitrogen 17 mg/dL (6-20); Carbon Dioxide 25 mmol/L (22-29); Chloride 99 mmol/L (98-107); Chol HDL Ratio 5.04 mg/dL (0.0-4.40); Cholesterol 267 mg/dL (0-200); Globulin 3.3 g/dL (1.3-4.6); Glomerular Filtration Rate 131.1 mL/min (90-130); Glucose 202 mg/dL (65-115); HDL Cholesterol 53 mg/dL (60-100); LDL Cholesterol Calculated 151 mg/dL (50-129); LDL HDL Ratio 2.85 RATIO (0.00-3.22); Osmolality Calculated 287 mOsm/kg (285-295); Potassium 4.3 mmol/L (3.5-5.1); Sodium 135 mmol/L (136-145); Total Bilirubin 0.2 mg/dL (0.15-1.2); Total Protein 7.4 g/dL (6.6-8.7); Triglycerides 315 mg/dL (0-150)
[2023-03-28 08:44] LABS: Estmated Average Glucose 206; Hemoglobin A1C 8.8 % (4.0-6.0)
[2023-03-28 09:14] LABS: Creatinine Urine, Random 52 mg/dL (28-217); Microalbumin Random Urine 7 ug/dL (0-20)
[2023-03-28 09:16] LABS: Microalbum Creatinine Ratio Ur 135 mg/dL (0-20)
[2023-03-29 08:48] LABS: Calcium 10.8 mg/dL (8.5-10.5)
[2023-03-29 08:55] LABS: Parathyroid Hormone 133.7 pg/mL (15-65)
== END 2023-03-28 07:50 | disposition home or self-care (01) ==
LOC: LAB 07:49
PROVIDERS: PCP Nurse Practitioner Family; Visit Provider Internal Medicine
DX: E11.9 Type 2 diabetes mellitus without complications (principal); E27.8 Other specified disorders of adrenal gland; K59.00 Constipation, unspecified; E78.5 Hyperlipidemia, unspecified; E21.0 Primary hyperparathyroidism; I25.10 Atherosclerotic heart disease of native coronary artery without angina pectoris; Z79.4 Long term (current) use of insulin; Z79.84 Long term (current) use of oral hypoglycemic drugs; Z72.0 Tobacco use; I63.9 Cerebral infarction, unspecified
CPT/HCPCS: 36415; 80053; 80061; 82044; 82310; 83036; 83970; 99214

== ENCOUNTER 2023-04-20 07:56 | Outpatient (CLI) | payer MEDICARE, SELFPAY ==
--- NOTE | 2023-04-20 08:45 | NM_ITS ---
WS: [email or web address] EXAMINATION: NM parathyroid [id number] ORDER DATE: 04/20/2023 7:55 AM COMPARISON: None HISTORY: E21.0 - Primary hyperparathyroidism TECHNIQUE: Parathyroid scintigraphy with 19.1 mCi of technetium 99m administered. AP and oblique view s obtained with and without chin and suprasternal notch markers. Initial and 2 hour delayed imaging a cquired. FINDINGS: Nodular uptake RIGHT lower thyroid lobe likely due to thyroid nodule. This could be followed-up with thyroid ultrasound. Normal homogeneous uptake LEFT thyroid. Normal salivary gland activity. Normal thyroid washout. Retained ovoid activity overlying the upper pole LEFT thyroid posteriorly adali picious for parathyroid adenoma. No other suspicious foci of retained activity. IMPRESSION: 1. Retained ovoid nodular activity overlying the upper pole LEFT thyroid posteriorly suspicious fo r parathyroid adenoma. 2. Nodular initial uptake in the RIGHT lower thyroid lobe suspicious for thyroid nodule. Recommend further evaluation with ultrasound or correlation with prior outside ultrasound studies.
== END 2023-04-20 07:57 | disposition home or self-care (01) ==
LOC: RAD 07:57
PROVIDERS: PCP Nurse Practitioner Family; Visit Provider Internal Medicine
DX: E21.0 Primary hyperparathyroidism (principal); E21.5 Disorder of parathyroid gland, unspecified
CPT/HCPCS: 78070; A9500

== ENCOUNTER 2023-05-01 12:40 | Outpatient (CLI) | payer MEDICARE, SELFPAY ==
--- NOTE | 2023-05-01 12:45 | XR_ITS ---
WS: [id number] Exam: XR KUB [id number] Date/Time of Exam: 05/01/2023 12:51 PM Reason For Exam: R10.9 - Unspecified abdominal pain No bowel obstruction or free air. No sign of organ enlargement. Signs of prior cholecystectomy and bi furcated abdominal aortic graft. There is fusion hardware at the L4-5 level. Associated laminectomies at this level. RIGHT and LEFT upper abdominal calcifications are noted which are nonspecific. Bony s tructures are intact. IMPRESSION: 1. No acute abdominal finding. 2. Postoperative findings as noted above.
== END 2023-05-01 12:41 | disposition home or self-care (01) ==
LOC: RAD 12:40
PROVIDERS: PCP Nurse Practitioner Family; Visit Provider Nurse Practitioner Family
DX: R10.9 Unspecified abdominal pain (principal); Z90.49 Acquired absence of other specified parts of digestive tract; Z98.1 Arthrodesis status
CPT/HCPCS: 74018

== ENCOUNTER → 2023-05-07 10:14 | Outpatient (BNVA) | payer MEDICARE, SELFPAY | PROVIDERS: PCP Nurse Practitioner Family; Visit Provider Internal Medicine Cardiovascular Disease | DX: I65.29 Occlusion and stenosis of unspecified carotid artery (principal); I10 Essential (primary) hypertension; E78.5 Hyperlipidemia, unspecified; K74.60 Unspecified cirrhosis of liver; Z86.73 Personal history of transient ischemic attack (TIA), and cerebral infarction without residual deficits; F17.210 Nicotine dependence, cigarettes, uncomplicated; E11.51 Type 2 diabetes mellitus with diabetic peripheral angiopathy without gangrene; Z79.4 Long term (current) use of insulin | CPT/HCPCS: 99213 ==

== ENCOUNTER → 2023-06-21 13:10 | Outpatient (BNVA) | payer MEDICARE, SELFPAY | PROVIDERS: PCP Nurse Practitioner Family; Visit Provider Nurse Practitioner Family | DX: L30.9 Dermatitis, unspecified (principal); L81.0 Postinflammatory hyperpigmentation; D22.62 Melanocytic nevi of left upper limb, including shoulder; L81.4 Other melanin hyperpigmentation; L57.8 Other skin changes due to chronic exposure to nonionizing radiation; D23.61 Other benign neoplasm of skin of right upper limb, including shoulder; D23.71 Other benign neoplasm of skin of right lower limb, including hip | CPT/HCPCS: 11102; 99203 ==

== ENCOUNTER 2023-07-25 08:45 | Outpatient (CLI) | payer MEDICARE, SELFPAY ==
[2023-07-25 09:51] LABS: Alanine Aminotransferase 8 U/L (0-33); Albumin Level 3.8 g/dL (3.5-5.2); Alkaline Phosphatase 153 U/L (35-105); Anion Gap 16.1 (5-19); Aspartate Amino Transferase 9 U/L (0-32); Blood Urea Nitrogen 17 mg/dL (6-20); Calcium 10.1 mg/dL (8.5-10.5); Carbon Dioxide 23 mmol/L (22-29); Chloride 98 mmol/L (98-107); Chol HDL Ratio 4.49 mg/dL (0.0-4.40); Cholesterol 283 mg/dL (0-200); Globulin 3.4 g/dL (1.3-4.6); Glomerular Filtration Rate 106.3 mL/min (90-130); Glucose 248 mg/dL (65-115); HDL Cholesterol 63 mg/dL (60-100); LDL Cholesterol Calculated 185 mg/dL (50-129); LDL HDL Ratio 2.94 RATIO (0.00-3.22); Osmolality Calculated 286 mOsm/kg (285-295); Potassium 4.1 mmol/L (3.5-5.1); Sodium 133 mmol/L (136-145); Total Bilirubin 0.2 mg/dL (0.15-1.2); Total Protein 7.2 g/dL (6.6-8.7); Triglycerides 177 mg/dL (0-150)
[2023-07-25 09:54] LABS: Creatinine Urine, Random 39 mg/dL (28-217); Microalbumin Random Urine 7 ug/dL (0-20)
[2023-07-25 09:55] LABS: Microalbum Creatinine Ratio Ur 179 mg/dL (0-20)
[2023-07-25 09:58] LABS: Estmated Average Glucose 203; Hemoglobin A1C 8.7 % (4.0-6.0)
== END 2023-07-25 08:46 | disposition home or self-care (01) ==
LOC: LAB 08:47
PROVIDERS: PCP Nurse Practitioner Family; Visit Provider Internal Medicine
DX: E11.9 Type 2 diabetes mellitus without complications (principal); E78.5 Hyperlipidemia, unspecified; E27.8 Other specified disorders of adrenal gland; I63.9 Cerebral infarction, unspecified; E21.0 Primary hyperparathyroidism; E04.1 Nontoxic single thyroid nodule; Z79.4 Long term (current) use of insulin; Z79.84 Long term (current) use of oral hypoglycemic drugs
CPT/HCPCS: 36415; 80053; 80061; 82044; 83036; 99214

== ENCOUNTER 2023-08-15 07:48 | Outpatient (CLI) | payer MEDICARE, SELFPAY ==
--- NOTE | 2023-08-15 08:00 | US_ITS ---
WS: [id number] ULTRASOUND THYROID TECHNIQUE: Ultrasound of the thyroid. CLINICAL INFORMATION: hyperparathyroidism COMPARISON: Nuclear medicine study 04/20/2023 FINDINGS: Thyroid: Right and left thyroid lobes are normal in size and echotexture. Several small subcentimeter thyroid nodules some of which likely represent colloid cyst. Largest spon giform nodule in the RIGHT inferior thyroid measures 6 x 4 x 7 mm. No corresponding abnormalities cor responding to the uptake in the RIGHT lower thyroid on the prior nuclear medicine study. Asymmetric u ptake visualized on the nuclear medicine study was likely due to rotation. Right thyroid lobe: 4.7 cm x 1.8 cm x 1.4 cm Left thyroid lobe: 3.9 cm x 1.6 cm x 1.1 cm. Isthmus: 0.4 mm. Cervical lymphadenopathy: Enlarged LEFT cervical chain lymph node measures 1.2 x 0.5 x 1.9 cm with pr eserved fatty hilum and otherwise normal appearance US/US thyroid [id number] IMPRESSION: 1. Few small subcentimeter cystic nodules some of which likely represent collo id cysts described above. 2. Enlarged LEFT cervical chain lymph node measuring 1.2 x 0.5 x 1.9 cm with a benign appearance. Largest cystic subcentimeter nodule measures 6 x 4 x 7 mm RIGHT inferior thyroi d. TIRADS Category 1: Benign (spongiform nodule) (total points = 0) No FNA
[2023-08-15 08:28] LABS: Add Urine Microscopic? YES; Bacteria Urine 1+ /hpf; Bilirubin Urine Neg (Negative); Blood Urine Neg (Negative); Glucose Urine UA 4+ (Normal); Ketones Urine 1+ (Negative); Leukocyte Esterase Urine Trace (Negative); Nitrate Urine Negative (Negative); Protein Urine Neg (Negative); RBC Urine 0-4 /hpf (0-2); Squamous Epithelial Cell Urine 0-4 /hpf (0-5); Urine Appearance Clear (CLEAR); Urine Color Yellow (Yellow); Urobilinogen Urine Norm (Negative); WBC Urine 55-80 /hpf (0-5); pH Urine 5 (5-7)
== END 2023-08-15 07:49 | disposition home or self-care (01) ==
PROVIDERS: PCP Nurse Practitioner Family; Visit Provider Internal Medicine
DX: R59.0 Localized enlarged lymph nodes (principal); N39.0 Urinary tract infection, site not specified; E04.2 Nontoxic multinodular goiter
CPT/HCPCS: 76536; 81001

== ENCOUNTER → 2023-10-26 10:57 | Outpatient (BNVA) | payer MEDICARE, SELFPAY | PROVIDERS: PCP Nurse Practitioner Family; Visit Provider Internal Medicine | DX: E21.0 Primary hyperparathyroidism; E78.5 Hyperlipidemia, unspecified; E27.8 Other specified disorders of adrenal gland; E04.1 Nontoxic single thyroid nodule; E11.65 Type 2 diabetes mellitus with hyperglycemia; Z79.84 Long term (current) use of oral hypoglycemic drugs; Z79.4 Long term (current) use of insulin | CPT/HCPCS: 36415; 80053; 80061; 82044; 82310; 83036; 83970; 84439; 84443; 99214 ==

== ENCOUNTER 2023-12-20 08:10 | Outpatient (CLI) | payer MEDICARE, SELFPAY ==
--- NOTE | 2023-12-20 08:23 | XR_ITS ---
WS: [id number] Left hip, AP and frog-leg views, 12/20/2023 Clinical Data: M25.552 - Pain in left hip Comparison: None. Findings: No fractures or dislocations are seen the left hip shows no erosion, narrowing, sclerosis or fragment ation of the left femoral head. There is a small acetabular lip. The posterior lumbar fusion and aort oiliac stent graft are seen.. The soft tissues are not remarkable. The adjacent pelvis is normal. XR/XR hip LT 2-3V wo/w pel* [id number] Impression: Minimal osteoarthritis of the left hip Tonnis classification: grade 1: sclerosis of femoral head and acetabulum or sli ght joint space narrowing or slight lipping at joint margins
--- NOTE | 2023-12-20 08:23 | XR_ITS ---
WS: [id number] Lumbar spine, AP and lateral views, 12/20/2023 Clinical Data: M54.50 - Low back pain, unspecified Comparison: None. Findings: No compression fractures or subluxation is seen. There is a posterior lumbar fusion at L4-L5 with francisca ateral pedicle screws and connecting rods. There is an artificial disc at L4-L5. The transverse proc esses and SI joints are normal. There is an aortic iliac stent graft. There are cholecystectomy clip s in the right upper quadrant. XR/XR lumbar spine 2-3V* [id number] Impression: Posterior lumbar fusion.
[2023-12-20 08:57] LABS: Estmated Average Glucose 212
[2023-12-20 09:01] LABS: Creatinine Urine, Random 22 mg/dL (28-217); Microalbumin Random Urine 4 ug/dL (0-20)
[2023-12-20 09:03] LABS: Alanine Aminotransferase 12 U/L (0-33); Albumin Level 4.3 g/dL (3.5-5.2); Alkaline Phosphatase 182 U/L (35-105); Anion Gap 17.2 (5-19); Aspartate Amino Transferase 9 U/L (0-32); Blood Urea Nitrogen 17 mg/dL (6-20); Calcium 10.3 mg/dL (8.5-10.5); Calcium 10.4 mg/dL (8.5-10.5); Carbon Dioxide 23 mmol/L (22-29); Chloride 96 mmol/L (98-107); Chol HDL Ratio 6.34 mg/dL (0.0-4.40); Cholesterol 336 mg/dL (0-200); Globulin 3.8 g/dL (1.3-4.6); Glomerular Filtration Rate 106.3 mL/min (90-130); Glucose 221 mg/dL (65-115); HDL Cholesterol 53 mg/dL (60-100); LDL Cholesterol Calculated 225 mg/dL (50-129); LDL HDL Ratio 4.25 RATIO (0.00-3.22); Osmolality Calculated 282 mOsm/kg (285-295); Parathyroid Hormone 189.7 pg/mL (15-65); Potassium 4.2 mmol/L (3.5-5.1); Sodium 132 mmol/L (136-145); Total Bilirubin 0.2 mg/dL (0.15-1.2); Total Protein 8.1 g/dL (6.6-8.7); Triglycerides 288 mg/dL (0-150)
[2023-12-20 09:04] LABS: Thyroid Stimulating Hormone 2.04 uIU/mL (0.27-4.20)
[2023-12-20 09:12] LABS: Microalbum Creatinine Ratio Ur 182 mg/dL (0-20)
== END 2023-12-20 08:11 | disposition home or self-care (01) ==
PROVIDERS: PCP Nurse Practitioner Family; Visit Provider Internal Medicine
DX: E11.40 Type 2 diabetes mellitus with diabetic neuropathy, unspecified (principal); E21.0 Primary hyperparathyroidism; E78.5 Hyperlipidemia, unspecified; M25.552 Pain in left hip; M43.26 Fusion of spine, lumbar region; Z95.828 Presence of other vascular implants and grafts; M16.12 Unilateral primary osteoarthritis, left hip; M54.40 Lumbago with sciatica, unspecified side; E27.8 Other specified disorders of adrenal gland; Z98.890 Other specified postprocedural states; K59.00 Constipation, unspecified; E04.1 Nontoxic single thyroid nodule; Z79.4 Long term (current) use of insulin; Z79.84 Long term (current) use of oral hypoglycemic drugs
CPT/HCPCS: 36415; 72100; 73502; 80053; 80061; 82044; 82310; 83036; 83970; 84439; 84443; 99214

== ENCOUNTER → 2024-02-25 11:03 | Outpatient (BNVA) | payer MEDICARE, SELFPAY | PROVIDERS: PCP Nurse Practitioner Family; Visit Provider Internal Medicine Cardiovascular Disease | DX: I65.23 Occlusion and stenosis of bilateral carotid arteries (principal); I45.9 Conduction disorder, unspecified; R94.31 Abnormal electrocardiogram [ECG] [EKG] | CPT/HCPCS: 93005; 99215 ==

== ENCOUNTER → 2024-02-29 07:36 | Outpatient (BNVA) | payer MEDICARE, SELFPAY | PROVIDERS: PCP Nurse Practitioner Family; Visit Provider Nurse Practitioner Family | DX: R53.83 Other fatigue (principal); E11.9 Type 2 diabetes mellitus without complications; I10 Essential (primary) hypertension | CPT/HCPCS: 80053; 80061; 83036; 85025 ==

== ENCOUNTER 2024-03-25 08:57 | Outpatient (CLI) | payer MEDICARE, SELFPAY ==
[2024-03-25 10:01] LABS: Estmated Average Glucose 223; Hemoglobin A1C 9.4 % (4.0-6.0)
[2024-03-25 10:13] LABS: Alanine Aminotransferase 6 U/L (0-33); Albumin Level 3.8 g/dL (3.5-5.2); Alkaline Phosphatase 190 U/L (35-105); Anion Gap 17.5 (5-19); Aspartate Amino Transferase 8 U/L (0-32); Blood Urea Nitrogen 20 mg/dL (6-20); Calcium 10.5 mg/dL (8.5-10.5); Carbon Dioxide 23 mmol/L (22-29); Chloride 98 mmol/L (98-107); Chol HDL Ratio 6.32 mg/dL (0.0-4.40); Cholesterol 297 mg/dL (0-200); Globulin 3.2 g/dL (1.3-4.6); Glomerular Filtration Rate 105.8 mL/min (90-130); Glucose 252 mg/dL (65-115); HDL Cholesterol 47 mg/dL (60-100); LDL Cholesterol Calculated 186 mg/dL (50-129); LDL HDL Ratio 3.96 RATIO (0.00-3.22); Osmolality Calculated 289 mOsm/kg (285-295); Potassium 4.5 mmol/L (3.5-5.1); Sodium 134 mmol/L (136-145); Total Bilirubin 0.2 mg/dL (0.15-1.2); Triglycerides 318 mg/dL (0-150)
[2024-03-25 10:18] LABS: Creatinine Urine, Random 25 mg/dL (28-217); Microalbumin Random Urine 6 ug/dL (0-20)
[2024-03-25 10:21] LABS: Microalbum Creatinine Ratio Ur 240 mg/dL (0-20)
== END 2024-03-25 08:58 | disposition home or self-care (01) ==
LOC: LAB 08:58
PROVIDERS: PCP Nurse Practitioner Family; Visit Provider Internal Medicine
DX: E11.9 Type 2 diabetes mellitus without complications (principal); E78.5 Hyperlipidemia, unspecified
CPT/HCPCS: 36415; 80053; 80061; 82044; 82306; 83036; 99214

== ENCOUNTER → 2024-10-23 08:52 | Outpatient (BNVA) | payer MEDICARE, SELFPAY | PROVIDERS: PCP Nurse Practitioner Family; Visit Provider Nurse Practitioner Family | DX: I10 Essential (primary) hypertension (principal); R53.83 Other fatigue; E11.9 Type 2 diabetes mellitus without complications | CPT/HCPCS: 80053; 80061; 83036; 84443; 85025 ==